=== PATIENT | female | born 1995 ===

== ENCOUNTER 2025-05-24 08:42 | Outpatient (REF) | payer OTHER, SELFPAY | END 2025-05-24 08:43 | disposition home or self-care (01) | LOC: CF 08:42 | PROVIDERS: PCP Nurse Practitioner Family; Visit Provider Nurse Practitioner Family | DX: Z00.00 Encounter for general adult medical examination without abnormal findings (principal); Z76.89 Persons encountering health services in other specified circumstances; Z39.1 Encounter for care and examination of lactating mother; E66.9 Obesity, unspecified; J45.20 Mild intermittent asthma, uncomplicated; D50.0 Iron deficiency anemia secondary to blood loss (chronic); F41.1 Generalized anxiety disorder; F33.0 Major depressive disorder, recurrent, mild; H91.22 Sudden idiopathic hearing loss, left ear; G08 Intracranial and intraspinal phlebitis and thrombophlebitis; Z87.898 Personal history of other specified conditions; Z79.899 Other long term (current) drug therapy; Z68.37 Body mass index [BMI] 37.0-37.9, adult | CPT/HCPCS: 96127; 96160 ==

== ENCOUNTER 2025-05-24 08:42 | Outpatient (AMB) | payer OTHER, SELFPAY ==
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
--- OUTSIDE RECORDS SUMMARY | 2024-04-01 10:30 | XMS_ITS ---
Author Organization [facility] [address] Address [address] [place] [address] Care Team Providers Care Hand Etcher Name Role Phone MATTSALTY BOSWELL Unavailable [phone] Medications Medication SIG (Take, Route, Fr equency, Duration) Notes Start Date End Date Status Zepbound 2.5 MG/0.5ML 2.5 mg weekly Subc utaneous Weekly; Duration: 30 days Active Encounters Encounter Location Date Provider Diagnosis [facility] [address] [address] 04/01/2024 SALTY KNUTSON BMI 37.0-37.9, adult Z68.37 [...] minimum of 6 months The most recent [place] [employer] of clinical endocrinologists and [place] [employer] of endocrinology guidelines recommend patients who [...] track activity level. Consider using apps like [employer], jslyhlpal, lose it, stick as needed for self-monitoring and weight management. Consider group exercises. Consider hiring a personal assistant. Regular exercise is ward to sustainable health [...] counseling and psychiatry and Dr Mitchell at [facility]. We would like to cover regular topics [...] software and direct typing Please excuse inadvertent manager order or typing errors, or uncorrected word substitutions Although every attempt has been made by the provider to proofread this document, occasional misspellings and typographical errors may still be present Due to the previous pandemic, and the use of personal protective equipment (PPE) This may decrease voice recognition accuracy Inadvertent manager order errors may occur 04/01/2024 Obesity (BMI 30-39.9) [...] minimum of 6 months The most recent [place] [employer] of clinical endocrinologists and [place] [employer] of endocrinology guidelines recommend patients who [...] track activity level. Consider using apps like [employer], [employer], lose it, stick as needed for self-monitoring and weight management. Consider group exercises. Consider hiring a personal assistant. Regular exercise is ward to sustainable health [...] counseling and psychiatry and Dr Mitchell at [facility]. We would like to cover regular topics [...] software and direct typing Please excuse inadvertent manager order or typing errors, or uncorrected word substitutions Although every attempt has been made by the provider to proofread this document, occasional misspellings and typographical errors may still be present Due to the previous pandemic, and the use of personal protective equipment (PPE) This may decrease voice recognition accuracy Inadvertent manager order errors may occur 04/01/2024 Dietary counseling and [...] minimum of 6 months The most recent [place] [employer] of clinical endocrinologists and [place] [employer] of endocrinology guidelines recommend patients who [...] track activity level. Consider using apps like [employer] mionute ex[employer]Arcos Technologiesise, jslyhlpal, lose it, stick as needed for self-monitoring and weight management. Consider group exercises. Consider hiring a personal assistant. Regular exercise is ward to sustainable health [...] counseling and psychiatry and Dr Mitchell at [facility]. We would like to cover regular topics [...] software and direct typing Please excuse inadvertent manager order or typing errors, or uncorrected word substitutions Although every attempt has been made by the provider to proofread this document, occasional misspellings and typographical errors may still be present Due to the previous pandemic, and the use of personal protective equipment (PPE) This may decrease voice recognition accuracy Inadvertent manager order errors may occur 04/01/2024 Anxiety (ICD-10 - [...] minimum of 6 months The most recent [place] [employer] of clinical endocrinologists and [place] [employer] of endocrinology guidelines recommend patients who [...] track activity level. Consider using apps like [employer], jslyhlpal, lose it, stick as needed for self-monitoring and weight management. Consider group exercises. Consider hiring a personal assistant. Regular exercise is ward to sustainable health [...] counseling and psychiatry and Dr Mitchell at [facility]. We would like to cover regular topics [...] software and direct typing Please excuse inadvertent manager order or typing errors, or uncorrected word substitutions Although every attempt has been made by the provider to proofread this document, occasional misspellings and typographical errors may still be present Due to the previous pandemic, and the use of personal protective equipment (PPE) This may decrease voice recognition accuracy Inadvertent manager order errors may occur 04/01/2024 Current mild episode [...] minimum of 6 months The most recent [place] [employer] of clinical endocrinologists and [place] [employer] of endocrinology guidelines recommend patients who [...] track activity level. Consider using apps like [employer], jslyhlpal, lose it, stick as needed for self-monitoring and weight management. Consider group exercises. Consider hiring a personal assistant. Regular exercise is ward to sustainable health [...] counseling and psychiatry and Dr Mitchell at [facility]. We would like to cover regular topics [...] software and direct typing Please excuse inadvertent manager order or typing errors, or uncorrected word substitutions Although every attempt has been made by the provider to proofread this document, occasional misspellings and typographical errors may still be present Due to the previous pandemic, and the use of personal protective equipment (PPE) This may decrease voice recognition accuracy Inadvertent manager order errors may occur 04/01/2024 Hyperlipidemia, unspecified hyperlipidemia [...] minimum of 6 months The most recent [place] [employer] of clinical endocrinologists and [place] [employer] of endocrinology guidelines recommend patients who [...] track activity level. Consider using apps like [employer], jslyhlpal, lose it, stick as needed for self-monitoring and weight management. Consider group exercises. Consider hiring a personal assistant. Regular exercise is ward to sustainable health [...] counseling and psychiatry and Dr Mitchell at [facility]. We would like to cover regular topics [...] software and direct typing Please excuse inadvertent manager order or typing errors, or uncorrected word substitutions Although every attempt has been made by the provider to proofread this document, occasional misspellings and typographical errors may still be present Due to the previous pandemic, and the use of personal protective equipment (PPE) This may decrease voice recognition accuracy Inadvertent manager order errors may occur 04/01/2024 Microcytosis (ICD-10 - [...] minimum of 6 months The most recent [place] [employer] of clinical endocrinologists and [place] [employer] of endocrinology guidelines recommend patients who [...] track activity level. Consider using apps like [employer], jslyhlpal, lose it, stick as needed for self-monitoring and weight management. Consider group exercises. Consider hiring a personal assistant. Regular exercise is ward to sustainable health [...] counseling and psychiatry and Dr Mitchell at [facility]. We would like to cover regular topics [...] software and direct typing Please excuse inadvertent manager order or typing errors, or uncorrected word substitutions Although every attempt has been made by the provider to proofread this document, occasional misspellings and typographical errors may still be present Due to the previous pandemic, and the use of personal protective equipment (PPE) This may decrease voice recognition accuracy Inadvertent manager order errors may occur Plan Of Treatment Medication Medication Name Sig Start Date Stop Date Notes Zepbound 2.5 MG/0.5ML 2.5 mg weekly Subc utaneous Weekly; Duration: 30 days Progress Notes * Joslyn MARTINEZaDOB: (30 yo F)Acc No.[id number]:04/01/2024 Patient: Madhuri SUN Provider: Skip KNUTSON NP :1995 A ge:29 Y S ex:Female Date:04/01/2024 Address:[address] [place] [address] Subjective: * Chief Complaints: * * HPI: C onstitutional: Patient is here [...] national shortages /Insurance prior authorization Started with personal assistant recently Last A1c 5.6 tolerating med well, [...] 18 TSH 0.87 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 * ROS: A ll Other Systems: Review of Systems (ROS) A ll others negative except those mentioned in HPI. * Medical History: Objective: * Vitals: * Examination: G eneral Examination: GENERAL APPEARANCE: i n no acute distress, well developed, well nourished. H EAD: n ormocephalic, atraumatic. E YES: p upils equal, round, reactive to light and accommodation. E ARS: n ormal. O RAL CAVITY: m ucosa moist. T HROAT: c lear. N BRENDA/THYROID: n brenda supple, full range of motion, no cervical lymphadenopathy. S KIN: n o suspicious lesions, warm and dry. H EART: n o murmurs, regular rate and rhythm, S1, S2 normal. L UNGS: c lear to auscultation bilaterally. A BDOMEN: n ormal, bowel sounds present, soft, nontender, nondistended. E XTREMITIES: n o clubbing, cyanosis, or edema. N EUROLOGIC: n onfocal, motor strength normal upper and lower extremities, sensory exam intact. Assessment: * Assessment: 1. O besity (BMI 30-39.9) - E66.9 (Primary) 2 . B IL 37.0-37.9, adult - Z68.37 3 . D [...] minimum of 6 months The most recent [place] [employer] of clinical endocrinologists and [place] [employer] of endocrinology guidelines recommend patients who [...] track activity level. Consider using apps like [employer], myfitPortAuthority Technologiespal, lose it, stick as needed for self-monitoring and weight management. Consider group exercises. Consider hiring a personal assistant. Regular exercise is ward to sustainable health [...] counseling and psychiatry and Dr Mitchell at [facility]. We would like to cover regular topics [...] software and direct typing Please excuse inadvertent manager order or typing errors, or uncorrected word substitutions Although every attempt has been made by the provider to proofread this document, occasional misspellings and typographical errors may still be present Due to the previous pandemic, and the use of personal protective equipment (PPE) This may decrease voice recognition accuracy Inadvertent manager order errors may occur. 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
--- OUTSIDE RECORDS SUMMARY | 2024-05-01 05:15 | XMS_ITS ---
Author Organization [facility] Address [address] [place] [address] Care Team Providers Care Press Helper Name Role Phone MATTSALTY BOSWELL Unavailable [phone] REASON FOR VISIT pt is here for wt mgmt follow up/pt unable to do seca due to computer malfunction Medications Medication SIG (Take, Route, Fr equency, Duration) Notes Start Date End Date Status Nurtec 75 MG 1 tablet as needed o n the tongue and allow to dissolve Orally every 48 hours; Duration: 90 days 04/07/2023 Active Wegovy 0.25mg 0.25mg 0.25 subcutaneously weekly; Duration: 30 days Active Zepbound 2.5 MG/0.5ML 2.5 mg weekly Subc utaneous Weekly; Duration: 30 days Active Encounters Encounter Location Date Provider Diagnosis [facility] [address] [place] [address] 05/01/2024 SALTY KNUTSON BMI 37.0-37.9, adult Z68.37 [...] minimum of [address] most recent [place] [employer] of clinical endocrinologists and [employer] [place] [employer] endocrin[employer] guidelines recommend patients who [...] track activity level. Consider using apps like [employer], myfitnesspal, lose it, stick as needed for self-monitoring and weight management. Consider group exercises. Consider hiring a personal care aide. Regular exercise is ward to sustainable health [...] counseling and psychiatry and Dr Mitchell at [facility]. We would like to cover regular topics [...] software and direct typing Please excuse inadvertent pipe fitter gas pipe or typing errors, or uncorrected word substitutions Although every attempt has been made by the provider to proofread this document, occasional misspellings and typographical errors may still be present Due to the previous pandemic, and the use of personal protective equipment (PPE) This may decrease voice recognition accuracy Inadvertent pipe fitter gas pipe errors may occur 05/01/2024 Obesity (BMI 30-39.9) [...] minimum of [address] The most recent [place] [employer] of clinical endocrinologists and [place] [employer] endocrin[employer] guidelines recommend patients who [...] track activity level. Consider using apps like [employer], myfitnesspal, lose it, stick as needed for self-monitoring and weight management. Consider group exercises. Consider hiring a personal care aide. Regular exercise is ward to sustainable health [...] counseling and psychiatry and Dr Mitchell at [facility]. We would like to cover regular topics [...] software and direct typing Please excuse inadvertent pipe fitter gas pipe or typing errors, or uncorrected word substitutions Although every attempt has been made by the provider to proofread this document, occasional misspellings and typographical errors may still be present Due to the previous pandemic, and the use of personal protective equipment (PPE) This may decrease voice recognition accuracy Inadvertent pipe fitter gas pipe errors may occur 05/01/2024 Dietary counseling and [...] minimum of [address] The most recent [place] [employer] of clinical endocrinologists and [employer] [place] [employer] of endocrinology guidelines recommend patients who [...] track activity level. Consider using apps like [employer], myfitnesspal, lose it, stick as needed for self-monitoring and weight management. Consider group exercises. Consider hiring a personal care aide. Regular exercise is ward to sustainable health [...] counseling and psychiatry and Dr Mitchell at [facility]. We would like to cover regular topics [...] software and direct typing Please excuse inadvertent pipe fitter gas pipe or typing errors, or uncorrected word substitutions Although every attempt has been made by the provider to proofread this document, occasional misspellings and typographical errors may still be present Due to the previous pandemic, and the use of personal protective equipment (PPE) This may decrease voice recognition accuracy Inadvertent pipe fitter gas pipe errors may occur 05/01/2024 Anxiety (ICD-10 - [...] minimum of [address] The most recent [place] [employer] of clinical endocrinologists and [place] [employer] of endocrinology guidelines recommend patients who [...] track activity level. Consider using apps like [employer], Xanof[employer], lose it, stick as needed for self-monitoring and weight management. Consider group exercises. Consider hiring a personal care aide. Regular exercise is ward to sustainable health [...] counseling and psychiatry and Dr Mitchell at [facility]. We would like to cover regular topics [...] software and direct typing Please excuse inadvertent pipe fitter gas pipe or typing errors, or uncorrected word substitutions Although every attempt has been made by the provider to proofread this document, occasional misspellings and typographical errors may still be present Due to the previous pandemic, and the use of personal protective equipment (PPE) This may decrease voice recognition accuracy Inadvertent pipe fitter gas pipe errors may occur 05/01/2024 Current mild episode [...] minimum of [address] most recent [place] [employer] of clinical endocrinologists and [employer] [place] [employer] of endocrinology guidelines recommend patients who [...] track activity level. Consider using apps like [employer], Xanofipal, lose it, stick as needed for self-monitoring and weight management. Consider group exercises. Consider hiring a personal care aide. Regular exercise is ward to sustainable health [...] counseling and psychiatry and Dr Mitchell at [facility]. We would like to cover regular topics [...] software and direct typing Please excuse inadvertent pipe fitter gas pipe or typing errors, or uncorrected word substitutions Although every attempt has been made by the provider to proofread this document, occasional misspellings and typographical errors may still be present Due to the previous pandemic, and the use of personal protective equipment (PPE) This may decrease voice recognition accuracy Inadvertent pipe fitter gas pipe errors may occur 05/01/2024 Hyperlipidemia, unspecified hyperlipidemia type (ICD-10 - E78.5) #Weight Management 05/01/2024 _update labs start Chuckpbound Will follow up in 6 weeks On [...] minimum of [address] most recent [place] [employer] of clinical endocrinologists and [employer] [place] [employer] of endocrinology guidelines recommend patients who [...] track activity level. Consider using apps like [employer], Xanofipal, lose it, stick as needed for self-monitoring and weight management. Consider group exercises. Consider hiring a personal care aide. Regular exercise is ward to sustainable health [...] counseling and psychiatry and Dr Mitchell at [facility]. We would like to cover regular topics [...] software and direct typing Please excuse inadvertent pipe fitter gas pipe or typing errors, or uncorrected word substitutions Although every attempt has been made by the provider to proofread this document, occasional misspellings and typographical errors may still be present Due to the previous pandemic, and the use of personal protective equipment (PPE) This may decrease voice recognition accuracy Inadvertent pipe fitter gas pipe errors may occur 05/01/2024 Microcytosis (ICD-10 - [...] minimum of [address] The most recent [place] [employer] of clinical endocrinologists and [employer] [place] [employer] of endocrinology guidelines recommend patients who [...] track activity level. Consider using apps like [employer], Xanofipal, lose it, stick as needed for self-monitoring and weight management. Consider group exercises. Consider hiring a personal care aide. Regular exercise is ward to sustainable health [...] counseling and psychiatry and Dr Mitchell at [facility]. We would like to cover regular topics [...] software and direct typing Please excuse inadvertent pipe fitter gas pipe or typing errors, or uncorrected word substitutions Although every attempt has been made by the provider to proofread this document, occasional misspellings and typographical errors may still be present Due to the previous pandemic, and the use of personal protective equipment (PPE) This may decrease voice recognition accuracy Inadvertent pipe fitter gas pipe errors may occur Plan Of Treatment Medication Medication Name Sig Start Date Stop Date Notes Zepbound 2.5 MG/0.5ML 2.5 mg weekly Subc utaneous Weekly; Duration: 30 days Progress Notes * Joslyn MARTINEZaDOB: (30 yo F)Acc No.[id number]:05/01/2024 Patient: Madhuri SUN Provider: Skip KNUTSON NP :1995 A ge:29 Y S ex:Female Date:05/01/2024 Address:[address] [place] [address] Subjective: * Chief Complaints: * 1 . Pt is here for wt mgmt follow up/pt unable to do seca due to computer malfunction. 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 * ROS: A ll Other Systems: Review of Systems (ROS) A ll others negative except those mentioned in HPI. * Medical History: * Medications: T aking Wegovy 0.25mg 0.25mg 0.25 subcutaneously weekly , Taking Nurtec 75 MG Tablet Disintegrating 1 tablet as needed on the tongue and allow to dissolve Orally every 48 hours , Taking Zepbound 2.5 MG/0.5ML Solution Auto-injector 2.5 mg weekly Subcutaneous Weekly Objective: * Vitals: * Examination: G eneral [...] 30-39.9) - E66.9 (Primary) 2 . B [place] 37.0-37.9, adult - Z68.37 3 . D [...] minimum of [address] most recent [place] [employer] of clinical endocrinologists and [place] [employer] of endocrinology guidelines recommend patients who [...] track activity level. Consider using apps like [employer], myfitnesspal, lose it, stick as needed for self-monitoring and weight management. Consider group exercises. Consider hiring a personal care aide. Regular exercise is ward to sustainable health [...] counseling and psychiatry and Dr Mitchell at [facility]. We would like to cover regular topics [...] software and direct typing Please excuse inadvertent pipe fitter gas pipe or typing errors, or uncorrected word substitutions Although every attempt has been made by the provider to proofread this document, occasional misspellings and typographical errors may still be present Due to the previous pandemic, and the use of personal protective equipment (PPE) This may decrease voice recognition accuracy Inadvertent pipe fitter gas pipe errors may occur. Plan: * Treatment: * Procedure Codes: 9 9199 NO SHOW OFFICE VISIT * Images: Billing Information: * Visit Code: * Procedure Codes: 15079 NO SHOW OFFICE VISIT. 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 Examination Category Sub-Category Detail Notes Category Not es General Examination GENERAL APPEARANCE: in no ac [place] distress, well developed, well nourished HEAD: normocephalic, [...]
--- NOTE | 2025-05-24 08:43 | A.OFFPC_ITS ---
Vital Signs 05/24/25 08:51 Height 5 ft 3 in Weight 211 lb 8 oz BMI 37.5 BP 118/70 Blood Pressure Location Lt brachial Position Sitting Respiration 12 Pulse 69 Pulse Source Pulse Oximeter Temp 97.3 F Temp Source Oral Pulse Oximetry (%) 98 Oxygen Delivery Method Room Air Intake Visit Reasons: CPE/ hearing issues Intake Note: New patient to establish care and cpe. 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 Required: No Allergies No Known Allergies Allergy (Verified 05/24/25 08:58) Medication List - Last Reviewed 05/24/25 by Blade Akers MA albuterol sulfate 90 mcg/actuation 1 puff inhalation Q4H PRN enoxaparin 40 mg subcut DAILY ferrous sulfate 325 mg PO DAILY sertraline 100 mg PO QAM Tobacco use date assessed: 05/24/25 Dental Screening Dental Screen Date: 05/24/25 Did you have a dental visit in the last 12 months?: Yes Did you have a dental problem in the last 6 months where you did not have access to dental care?: No Was dental information given to patient?: Patient has dentist HPI HPI Comments History of Present Illness Details 30 y/o F with asthma, gestational dm, ob esity, fhx colon ca in Mom, SCOTT, MDD, Iron def anemia, Cerebral venous thrombus of sinus Surgery: None Fhx: Mom colon Ca (dx 47); Dad alive and well; 3 siblings alive and well. 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 Hx of gestational dm SCOTT/MDD controlled on sertraline Mom colon ca dx age 47; sadie need colon at age 37. Rash on skin, comes and goes, takes Zyrtec with + effect. Started in February. Likely post reaction. Cerebral venous thrombus of sinus noted during last . + headaches. Advised no f/u needed L nipple chaffed and bleeding; pumping. Review of Systems - ENT: Reports difficulty hearing in lef t ear. - Mental Health: Reports controlled anxi ety and depression. - Respiratory: Reports well-controlled a sthma. - Dermatologic: Reports intermittent josefina h. - Gastrointestinal: Denies abdominal daniel n. - Neurological: Denies headaches. Physical Exam General: Well developed, well nourished, in no acute distress. Appears stated age. Head: Normocephalic, atraumatic. Eyes: Pupils are equal, round and reactive to light and accommodation. Conjunctivae are clear. Scleras nonicteric bilat. Vision grossly normal. Ears: TMs clear AU, EACS WNL. Nose: Patent, without discharge. Neck: No carotid bruit bilat. Supple, no adenopathy or thyromegaly. Breast: Left nipple is cracked, no infection. Edu on SBE. Lungs: Clear to auscultation bilaterally. No rales, rhonchi or wheeze noted. Good air flow in all gill. Heart: Regular rate and rhythm. No murmurs, click, rubs or gallops are noted. Abdomen: Bowel sounds present in all quadrants. The abdomen is soft, nontender, with no masses or organomegaly noted. No hernias are noted. : Deferred. Reviewed recommendations for routine HEALTH AND WELLNESS COORDINATOR. Pulses: Peripheral pulses are equal and palpable bilaterally. Extremities: No clubbing, cyanosis nor edema is noted. Neurologic: Gait and station normal. Cranial Nerves 2-12 intact. Motor strength grossly symmetrical and intact. No sensory loss. Balance normal. Skin: Rash noted, described as hives that appear all over the body, including face, neck, arms, and legs. Turgor is good. Skin color is good. Hair and nails are without abnormalities. Psych: Normal eye contact, affect and mood appropriate, and normal interactions. Patient is alert and appropriate to context. Results Pending Discussion Notes I discussed the significance of the patient's hearing loss and the need for further evaluation, including a hearing test and imaging. The patient is aware of the urgency for the ENT referral due to the progressive hearing loss. I explained the uncertainty around ENT wait times but mentioned imaging as a means to potentially expedite the process based on findings. Regarding the rash, I explained the potential for chronic hives or rash post-delivery due to hormonal changes, noting that if it persists beyond , dermatological evaluation may be needed. The patient was informed to continue Zyrtec for management. For the nipple concern, I recommended the application of zinc oxide as a barrier cream, acknowledging the potential benefits for healing. Patient was given time to ask questions. All questions were answered to their satisfaction. Assessment and Plan 1. Hearing Loss in the Left Ear - ENT referral. - CT scan 2. Iron Deficiency Anemia - Routine labs ordered. 3. Asthma - Refilled albuterol prescription. 4. Anxiety and Depression - Continue sertraline and psychotherapy. 5. Rash - Continue Zyrtec. - Dermatology referral if persistent. 6. Nipple Cracking/Pain - Apply zinc oxide. Patient Instructions - Use Zyrtec to control rash symptoms as needed. - Apply zinc oxide on affected nipple to aid healing. - Follow up on ENT referral for hearing evaluation. - Attend lab work as scheduled. - Continue taking prescribed medications as directed. - Contact office through [facility] for concerns or urgent needs. - RTO 1 year for CPE. My office will arr maritza for fu once CT results are back. Consent Patient was informed and verbally consented to the use of an ambient scribe for clinic note documentation during this visit. An additional 45 minutes was spent addressing the problem(s) noted at todays visit. This includes time spent before the visit reviewing the chart, time spent during the visit, and time spent after the visit on documentation reviewing laboratory results, diagnostic imaging, medications, performing a medically necessary evaluation, counseling on diagnoses, care coordination, ordering appropriate tests, ordering appropriate medications, review of tests performed by other providers, reporting test results with the patient, communication with other healthcare providers. [facility] Medical History (Updated 05/24/25 @ 12:47 by Carmelita Weems [facility]) Anxiety and depression Asthma HSV (herpes simplex virus) anogenital infection Surgical History (Updated 05/24/25 @ 08:54 by Blade Akers MA) No pertinent past surgical history Family History (Updated 05/24/25 @ 08:55 by Blade Akers MA) Mother Asthma Diabetes Colon cancer Mental health disorder Social History (Updated 05/24/25 @ 08:51 by Blade Akers MA) Household Members: Spouse, Children and Other Household Members Other:: mother in law Housing: House Are you a primary insurance healthcare consultant to a significant other at home: Yes Do you presently have visiting nurse or other home services: No Alcohol intake: never Patient Tobacco Use Status: Never used Tobacco e-Cigarette/Vaping Use: Never Used Second Hand Smoke Exposure: No service: No Current occupational status: employed 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 1. Little interest or pleasure in doing things: not at all 2. Feeling down, depressed, or hopeless: not at all 3. Trouble falling or staying asleep, or sleeping too much: not at all 4. Feeling tired or having little energy: not at all 5. Poor appetite or overeating: not at all 6. Feeling bad about yourself - or that you are a failure or have let yourself or your family down: not at all 7. Trouble concentrating on things, such as reading the newspaper or watching television: not at all 8. Moving or speaking so slowly that other people could have noticed. Or the opposite - being so fidgety or restless that you have been moving around a lot more than usual: not at all 9. Thoughts that you would be better off or of hurting yourself in some way: not at all Total score: 0 Depression Screening Interpretation: Negative Depression Screening Done: Yes 08458 - PHQ-9 Billing: Yes Source: Developed by Drs. Todd Quintanilla, Herlinda Wood, Dav Prajapati and colleagues, with an educational stacy from [employer]. Thrive Questionnaire Date Thrive assessed: 05/24/25 I am a: Patient What is your living situation today?: I have a steady place to live Within the past 12 months, did the food you bought not last and you didn't have the money to get more?: Never true Within the past 12 months, did you worry whether your food would run out before you got money to buy more?: Never true Do you have trouble paying for medicines?: No Do you have trouble getting transportation to medical appointments?: No Do you have trouble paying your heating and electricity bill?: No Do you have trouble taking care of your child, family member or friend?: No Do you have trouble with day-to-day activities such as bathing, preparing meals, shopping, managing finances, etc.?: No Are you currently unemployed and looking for a job?: No Are you interested in more education?: No Please select the resources that you would like help with: None Currently or been in a relationship where the following occur: No concerns reported THRIVE Score: 0 AUDIT C Alcohol Use Questionnaire (AUDIT-C) 1. How often do you have a drink containing alcohol?: Never 3. How often do you have six or more drinks on one occasion?: Never Total Score: 0 Score Reviewed/Action Taken: Yes SCOTT-7 AMB Questionnaire SCOTT-7 Date SCOTT - 7 assessed: 05/24/25 Feeling nervous, anxious, or on edge: 1 = Several days Not being able to stop or control worryin = Not at all Worrying too much about different things: 0 = Not at all Trouble relaxin = Several days Being so restless that it is hard to sit still: 0 = Not at all Becoming easily annoyed or irritable: 1 = Several days Feeling afraid as if something awful might happen: 0 = Not at all Total SCOTT-7 score (0-4 normal; 5-9 mild; 10-14 moderate; 15-21 severe): 3 Source: Developed by Drs. Todd Quintanilla, Herlinda Wood, Dav Prajapati and colleagues, with an educational stacy from [employer]. SCOTT-7 Assessment Billing SCOTT-7 Assessment Tool: SCOTT-7 Assessment 21236 ACT Questionnaire In the past 4 weeks, how much of the time did your asthma keep you from getting as much done at work, school or at home?: None of the time During the past 4 weeks, how often have you had shortness of breath?: Not at all During the past 4 weeks, how often did your asthma symptoms wake you up at night or earlier than usual in the morning?: Not at all During the past 4 weeks, how often have you had to use your rescue inhaler or nebulizer medication?: Not at all How would you rate your asthma control during the past 4 weeks?: Completely controlled ACT Interpretation: Negative Score: 25 Physical exam (Primary Care) Vital Signs: Last Vital Signs Temp 97.3 F 05/24/25 08:51 Pulse 69 05/24/25 08:51 Resp 12 05/24/25 08:51 BP 118/70 05/24/25 08:51 Pulse Ox 98 09/30/25 08:51 Oxygen Delivery Method Room Air 05/24/25 08:51 BMI result Body Mass Index 37.5 Tobacco/Smoking Status: Tobacco use Status Tobacco use date assessed 05/24/25 05/24/25 08:47 Patient Tobacco Use Status Never used Tobacco 05/24/25 08:51 e-Cigarette/Vaping Use Never Used 05/24/25 08:51 PHQ-9: PHQ-9 Score PHQ-9: Total score 0 05/24/25 09:28 Depression Screening Interpretation: Negative Thrive Assessment: Date of Thrive Assessment Date Thrive assessed 05/24/25 05/24/25 08:47 Currently or been in a relationship where the following occur: No concerns reported Coding Level of Care Code New Pt Level 4 (39351) New Pt Prev Care 18-39yr(74274 Diagnoses Encounter to establish care with new provider Z76.89 Obesity (BMI 30-39.9) E66.9 Mild intermittent asthma in adult without complication J45.20 Laboratory exam ordered as part of routine general medical examination Z00.00 Iron deficiency anemia due to chronic blood loss D50.0 Iron deficiency anemia type: chronic blood loss SCOTT (generalized anxiety disorder) F41.1 Mild episode of recurrent major depressive disorder F33.0 Major depression episode severity: mild Sudden-onset sensorineural hearing loss of left ear H91.22 Cerebral venous sinus thrombosis G08 History of headache Z87.898 Encounter for general adult medical examination without abnormal findings Z00.00 Mother currently breast-feeding Z39.1 Additional Codes Asthma Control Questionnaire - ACT Interpretation: Negative ([id number]) SCOTT-7 Assessment Billing - SCOTT-7 Assessment Tool: SCOTT-7 Assessment 05304 ([id number]) PHQ-9 - 72435 - PHQ-9 Billing: Yes ([id number]) Assessment & Plan Assessment & Plan (1) Encounter to establish care with new provider: Code(s): Z76.89 - Persons encountering health services in other specified circumstances (2) Obesity (BMI 30-39.9): Code(s): E66.9 - Obesity, unspecified Category: Medical (3) Mild intermittent asthma in adult without complication: Code(s): J45.20 - Mild intermittent asthma, uncomplicated Category: Medical (4) Laboratory exam ordered as part of routine general medical examination: Code(s): Z00.00 - Encounter for general adult medical examination without abnormal findings Category: Medical (5) Iron deficiency anemia: Code(s): D50.9 - Iron deficiency anemia, unspecified Category: Medical Qualifiers: Iron deficiency anemia type: chronic blood loss Qualified Code(s): D50.0 - Iron deficiency anemia secondary to blood loss (chronic) (6) SCOTT (generalized anxiety disorder): Code(s): F41.1 - Generalized anxiety disorder Category: Medical (7) MDD (major depressive disorder), recurrent episode: Code(s): F33.9 - Major depressive disorder, recurrent, unspecified Category: Medical Qualifiers: Major depression episode severity: mild Qualified Code(s): F33.0 - Major depressive disorder, recurrent, mild (8) Sudden-onset sensorineural hearing loss of left ear: Code(s): H91.22 - Sudden idiopathic hearing loss, left ear Category: Medical (9) Cerebral venous sinus thrombosis: Code(s): G08 - Intracranial and intraspinal phlebitis and thrombophlebitis Category: Medical (10) History of headache: Code(s): Z87.898 - Personal history of other specified conditions Category: Medical (11) Encounter for general adult medical examination without abnormal findings: Onset Date: ~05/24/25 Code(s): Z00.00 - Encounter for general adult medical examination without abnormal findings Category: Medical (12) Mother currently breast-feeding: Code(s): Z39.1 - Encounter for care and examination of lactating mother Category: Medical Plan . Orders: Orders Comprehensive Met. Panel Today D50.9 - Iron deficiency anemia, unspecified, F33.9 - Major depressive disorder, recurrent, unspecified, F41.1 - Generalized anxiety disorder, Z00.00 - Encounter for general adult medical examination without abnormal findings Hemoglobin A1c Today D50.9 - Iron deficiency anemia, unspecified, F33.9 - Major depressive disorder, recurrent, unspecified, F41.1 - Generalized anxiety disorder, Z00.00 - Encounter for general adult medical examination without abnormal findings Ferritin Today D50.9 - Iron deficiency anemia, unspecified, F33.9 - Major depressive disorder, recurrent, unspecified, F41.1 - Generalized anxiety disorder, Z00.00 - Encounter for general adult medical examination without abnormal findings Microalbumin, Random (w Creat) Today D50.9 - Iron deficiency anemia, unspecified, F33.9 - Major depressive disorder, recurrent, unspecified, F41.1 - Generalized anxiety disorder, Z00.00 - Encounter for general adult medical examination without abnormal findings Vitamin B12 and Folate Today D50.9 - Iron deficiency anemia, unspecified, F33.9 - Major depressive disorder, recurrent, unspecified, F41.1 - Generalized anxiety disorder, Z00.00 - Encounter for general adult medical examination without abnormal findings CT internal auditory canals BI Today G08 - Intracranial and intraspinal phlebitis and thrombophlebitis, H91.22 - Sudden idiopathic hearing loss, left ear Complete Blood Count no Diff Today D50.9 - Iron deficiency anemia, unspecified, F33.9 - Major depressive disorder, recurrent, unspecified, F41.1 - Generalized anxiety disorder, Z00.00 - Encounter for general adult medical examination without abnormal findings IRON PROFILE Today D50.9 - Iron deficiency anemia, unspecified, F33.9 - Major depressive disorder, recurrent, unspecified, F41.1 - Generalized anxiety disorder, Z00.00 - Encounter for general adult medical examination without a bnormal findings Lipid Panel Today D50.9 - Iron deficiency anemia, unspecified, F33.9 - Major depressive disorder, recurrent, unspecified, F41.1 - Generalized anxiety disord er, Z00.00 - Encounter for general adult medical examination without abnormal findings TSH reflex Free T4 Today D50.9 - Iron deficiency anemia, unspecified, F33.9 - Major depressive disorder, recurrent, unspecified, F41.1 - Generalized anxiety disorder, Z00.00 - Encounter for general adult medical examination without abnormal findings Vitamin D 25-OH Total Today D50.9 - Iron deficiency anemia, unspecified, F33.9 - Major depressive disorder, recurrent, unspecified, F41.1 - Generalized anxiety disorder, Z00.00 - Encounter for general adult medical examination without abnormal findings Referrals Ear/Nose/Throat Referral G08 - Intracranial and intraspinal phlebitis and thrombophlebitis, H91.22 - Sudden idiopathic hearing loss, left ear Medications: New albuterol sulfate 90 mcg/actuation 1 puff inhalation Q4H PRN 6.7 grams 2RF wheezing Patient Instructions: Zinc Oxide (desitin) Walk-In Care (Urgent Care): We Make it Easy Walk-in for urgent medical issues such as: ? Seasonal Allergies ? Insect Bites ? Cough ? Diarrhea ? Acute Asthma Attacks ? Back, Knee or Joint Pain ? Ear Infection ? Fever without a Rash ? Headaches ? Nausea ? [place] Eye, Rash or Skin Irritation ? Sore Throat ? Sports Physicals ? Vomiting Most insurances are accepted. Patients do not need to be part of the [facility] to seek care at the walk-in clinic. Locations [address] [place] [address] Open Friday through Friday 8am-5pm *Hours may vary due to staffing availability. To confirm Walk-In Care hours please call. [facility] , [place] [address] ? [phone] [facility] Walk-In Care in [place] provides services to ages 18 and over. Open Friday-Friday: 7 a.m. to 5 p.m. and Friday: 9 a.m. to 3 p.m.* *Hours may vary due to staffing availability. To confirm Walk-In Care hours in [place], please call [phone]. [address] [place] [address] ? [phone] [facility] Walk-In Care in [place] provides services to ages 12 and over. Open Friday-Friday: 8 a.m. to 5 p.m. Hours may vary due to staffing availability. To confirm Walk-In Care hours in [place], please call [phone]. LABORATORY SERVICES: [facility] Lab ? Primary Location [address] [place] [address] Friday through Friday 6:00 AM ? 5:00 PM Friday 7:00 AM ? 11:00 AM* [phone] The [facility] Lab is centrally located near the front entrance of the [facility] for easy outpatient access. Convenient parking is provided for outpatients. *Hours may vary due to staffing availability. To confirm Laboratory hours for any location, please call [phone]. Offsite Location For your convenience, we offer offsite laboratory draw stations at the following locations: [address] [place] [address] ? [facility] [address], [address] Friday through Friday 7:30 AM ? 1:00 PM* [phone] *Hours may vary due to staffing availability. To confirm Laboratory hours for any location, please call [phone]. [place] [address] Friday through Friday 6:00 AM ? 3:30 PM* Friday 6:30 AM ? 3 PM* [phone] *Hours may vary due to staffing availability. To confirm Laboratory hours for any location, please call [phone]. [address] [facility] Friday through Friday 7:30 AM ? 4:00 PM* [phone] *Hours may vary due to staffing availability. To confirm Laboratory hours for any location, please call [phone] [place] [address] Friday through 9:00 AM ? 4:00 PM* *Hours may vary due to staffing availability. To confirm Laboratory hours for any location, please call [phone]. Appointments are not necessary. Walk-ins are welcome. Like all the departments throughout the [facility], our Lab undergoes frequent reviews to ensure the quality and accuracy of test results, and our staff takes special pride in its status as a nationally accredited facility. Patient Portal: [facility] ONE PATIENT. ONE RECORD. BETTER CARE. [facility] has a fully integrated, cutting- edge mobile electronic health information system that has revolutionized the way we care for our patients and manage our organization. This system improves communication and coordination enabling us to provide safe, higher-quality care, and an overall positive experience for staff and patients. Our first priority, as always, is to deliver the highest quality care possible. The system is running in the background supporting that priority. This portal is for all [facility] services and practices. If you are experiencing any technical difficulties with enrolling or logging into the Patient Portal please complete the [facility] Patient Portal Technical Support Form. [facility] now offers a new secure on-line interactive tool for patients to review their health information ? ?Patient Portal. This interactive web portal will enable patients and their families to take an active role in their care by providing easy, secure access to their health information via the internet. The Patient Portal provides patients with instant access to their health information, including laboratory results, medications, allergies, demographic information, visit history, and more. In addition to managing their own care, parents and health care proxies with authorized consent will appreciate the ability to access the records of those individuals for whom they provide care. Please note: if you wish to gain access (Proxy) to another patient?s portal, you will be required to come to the Medical Records Department in person at [facility]. Both the patient giving proxy access and the proxy will need to provide photo identification and complete the appropriate authorization. The Patient Portal also allows track their appointments online. The [facility] Patient Portal also saves patients time by allowing them to submit updates to their demographic and contact information prior to their visits. Portal email notifications will also alert patients to any new activity on their portal, such as test results and new appointments. In order to initially enroll in the [facility] Patient Portal, you will need to enter some required information including the following: * your [facility] Medical Record number * your personal home email address * name * date of Please note: In order to enroll in the [facility] Patient Portal, we need to have your email address on file in your electronic medical record. ?The email address needs to be specific for one person (yourself) in order for your Portal enrollment to be successful. ?You can update your email address in person with our Registration staff when you are registering for a hospital visit. ?Otherwise, you will need to come to the Health Information Management (Medical Records) Department at [facility]. ?We are open from Friday ? Friday from 7:30 a.m. ? 4:30 p.m. ?You will be required to present a photo id. Once you have successfully enrolled in the Patient Portal, you will receive a one-time user id and password for the Portal, sent to your email address. ?This will allow you to log into the Patient Portal within 99 hrs and reset your own logon id and password, and define personal security questions. ?Once your permanent login and password have been set, you can log into the [facility] Patient Portal at any time via the blue button above or from the Portal Logon button on any page of the [facility] website. [facility] and [facility] encourage all of our patients to enroll in Patient Portal as it presents a valuable opportunity for patients and their families to actively participate in their care and stay healthy Welcome to [facility]. ?We look forward to working with you. Health screenings for women You should visit your health care provider from time to time, even if you are healthy. The purpose of these visits is to: Screen for medical issues Assess your risk for future medical problems Encourage a healthy lifestyle Update vaccinations and other preventive care services Help you get to know your provider in case of an illness Information Even if you feel fine, you should still see your provider for regular checkups. These visits can help you avoid problems in the future. For example, the only way to find out if you have high blood pressure is to have it checked regularly. High blood sugar and high cholesterol levels also may not have any symptoms in the early stages. A simple blood test can check for these conditions. There are specific times when you should see your provider or receive specific health screenings. The [place] Preventive Services Task Force publishes a list of recommended screenings. Below are screening guidelines for women ages 18 to 39. BLOOD PRESSURE SCREENING Your blood pressure should be checked at least once every 3 to 5 years if: Your blood pressure is in the normal range (top number less than 120 mm Hg and bottom number less than 80 mm Hg) You don't have risk factors for high blood pressure Ask your provider if you need your blood pressure checked more often if: The top number is 120 to 129 mm Hg or the bottom number is 70 to 79 mm Hg You have diabetes, heart disease, kidney problems, are overweight, or have certain other health conditions You have a first-degree relative with high blood pressure You are Black You had high blood pressure during a If the top number is 130 mm Hg or greater or the bottom number is 80 mm Hg or greater, this is considered stage 1 hypertension. Schedule an appointment with your provider to learn how you can reduce your blood pressure. Watch for blood pressure screenings in your area. Ask your provider if you can stop in to have your blood pressure checked. BREAST CANCER SCREENING Experts do not agree about the benefits of breast self-exams in finding breast cancer or saving lives. Talk to your provider about what is best for you. A screening mammogram is not recommended for most women under age 40. Your provider may discuss and recommend mammograms, MRI scans, or ultrasounds if you have an increased risk for breast cancer, such as: A mother or sister who had breast cancer at a young age (most often starting screening earlier than the age the close relative was diagnosed) You carry a high-risk genetic marker CERVICAL CANCER SCREENING Cervical cancer screening should start at age 21 years unless your provider advises otherwise. After the first test: Women ages 21 through 29 should have a Pap test every 3 years. Exoprts do not agree on whether HPV testing is recommended for this age group. Women ages 30 through 65 should be screened with either a Pap test every 3 years or the HPV test every 5 years or both tests every 5 years (called cotesting ). Women who have been treated for precancer (cervical dysplasia) should continue to have Pap tests for 20 years after treatment or until age 65, whichever is longer. If you have had your uterus and cervix removed (total hysterectomy), and you have not been diagnosed with cervical cancer or precancer (high grade cervical neoplasia), you do not need cervical cancer screening. CHOLESTEROL SCREENING Cholesterol screening should begin at: Age 45 for women with no known risk factors for coronary heart disease Age 20 for women with known risk factors for coronary heart disease Repeat cholesterol screening should take place: Every 5 years for women with normal cholesterol levels More often if changes occur in lifestyle (including weight gain and diet) More often if you have diabetes, heart disease, kidney problems, or certain other conditions DIABETES SCREENING You should be screened for diabetes starting at age 35 and then repeated every 3 years if you have no risk factors for diabetes. Screening may need to start earlier and be repeated more often if you have other risk factors for diabetes, such as: You have a first degree relative with diabetes. You are overweight or have obesity. You have high blood pressure, prediabetes, or a history of heart disease. Screening for diabetes should be done if you are planning to become and you are overweight and have other risk factors such as high blood pressure. DENTAL EXAM Go to the dentist once or twice every year for an exam and cleaning. Your dentist will evaluate if you need more frequent visits. EYE EXAM Have an eye exam every 5 to 10 years before age 40. If you have vision problems, have an eye exam every 2 years or more often if recommended by your provider. You should have an eye exam that includes an examination of your retina (back of your eye) at least every year if you have diabetes. IMMUNIZATIONS Commonly needed vaccines include: Flu shot: get one every year. COVID-19 vaccine: ask your provider what is best for you. Tetanus-diphtheria and acellular pertussis (Tdap) vaccine: have one at or after age 19 as one of your tetanus-diphtheria vaccines if you did not receive it as an adolescent. Tetanus-diphtheria: have a booster (or Tdap) every 10 years. Varicella vaccine: receive 2 doses if you never had chickenpox or the varicella vaccine. Hepatitis B vaccine: receive 2, 3, or 4 doses, depending on your exact circumstances. Measles, mumps, and rubella (MMR) vaccine: receive 1 to 2 doses if you are not already immune to MMR. Your provider can tell you if you are immune. Ask your provider about the human papillomavirus (HPV) vaccine if: You have not received the HPV vaccine in the past You have not completed the full vaccine series (you should catch up on this shot) Ask your provider if you should receive other immunizations if you have certain health problems that increase your risk for some diseases such as pneumonia. INFECTIOUS DISEASE SCREENING Women who are sexually active should be screened for chlamydia and gonorrhea up until age 25. Women 25 years and older should be screened for chlamydia and gonorrhea if at high risk. Screening for hepatitis C: All adults ages 18 to 79 should get a one-time test for hepatitis C. people should be screened at every . Screening for human immunodeficiency virus (HIV): All people ages 15 to 65 should get a one-time test for HIV. Depending on your lifestyle and medical history, you may also need to be screened for infections such as syphilis and HIV, as well as other infections. PHYSICAL EXAM All adults should visit their provider from time to time, even if they are healthy. The purpose of these visits is to: Screen for disease Assess your risk of future medical problems Encourage a healthy lifestyle Update your vaccinations and other preventive care services Maintain a relationship with a provider in case of an illness Your height, weight, and BMI should be checked at every exam. During your exam, your provider may ask you about: Depression and anxiety Diet and exercise Alcohol and tobacco use Safety issues, such as using seat belts, smoke detectors, and intimate partner violence Your medicines and risk for interactions SKIN SELF-EXAM Your provider may check your skin for signs of skin cancer, especially if you're at high risk, such as if you: Have had skin cancer before Have close relatives with skin cancer Have a weakened immune system OTHER SCREENING Talk with your provider about colon cancer screening if you have a strong family history of colon cancer or polyps, or if you have had inflammatory bowel disease or polyps yourself. Routine bone density screening of women under 40 is not recommended.
[2025-05-24 08:51] VITALS: BP 118/70; PULSE 69; RESP 12; TEMP 36.3; O2SAT 98; BMI 37.5
--- OUTSIDE RECORDS SUMMARY | 2025-05-24 09:11 | XMS_ITS | Patient Health Record ---
Author Organization [facility] [address] Address [address] [place] [address] Care Team Providers Care Medication Technician Name Role Phone SALTY KNUTSON Unavailable [phone] Allergies No Known Allergies Reason For Referral No Information Medications Medication SIG (Take, Route, Fr equency, Duration) Notes Start Date End Date Status Nurtec 75 MG 1 tablet as needed o n the tongue and allow to dissolve Orally every 48 hours; Duration: 90 days 04/07/2023 Active Wegovy 0.25mg 0.25mg 0.25 subcutaneously weekly; Duration: 30 days Active Zepbound 2.5 MG/0.5ML 2.5 mg weekly Subc utaneous Weekly; Duration: 30 days Active Immunizations Vaccine Route Administration Date Status Comme nts influenza IM Intramuscular 10/08/2022 Administered Social History Tobacco Use: Social History Observation Description Date Details (start date - stop date) Never Smoker NA - NA Tobacco Use/Smoking Question Answer Notes Are you a nonsmoker Problems Problem Type SNOMED Code ICD Code Onset Dates Problem Status W/U Status Risk Notes Problem Vitamin D deficiency (89270970) Vitamin D deficiency, unspecified (E55.9) Active confirmed Problem Migraine with aura (9401423) Migraine with aura, not intractable, with status migrainosus (G43.101) Active confirmed Problem Adult health examination (011293763) Encounter for general adult medical examination without abnormal findings (Z00.00) Active confirmed Problem Diabetes mellitus screening (435268105) Encounter for screening for diabetes mellitus (Z13.1) Active confirmed Problem Endocrine/metaboli c screening (444297377) Encounter for screening for other suspected endocrine disorder (Z13.29) Active confirmed Problem Prediabetes (073354024) Prediabetes (R73.03) Active confirmed Problem Hyperlipidaemia (08279532) Hyperlipidemia, unspecified hyperlipidemia type (E78.5) Active confirmed Problem Anxiety (31423420) Anxiety (F41.9) Active confi rmed Problem Hypothyroidism (32458618) Hypothyroidism, unspecified type (E03.9) Active confirmed Problem Obesity (637443080) Obesity (BMI 30-39.9) (E66.9) Active confirmed Problem Obese class II (487067623503935) BMI 37.0-37.9, adult (Z68.37) Active confirmed Problem Mild major depression, single episode (40510781) Current mild episode of major depressive disorder without prior episode (F32.0) Active confirmed Problem Obese class II (645865008931611) BMI 36.0-36.9,adult (Z68.36) Active confirmed Problem Visual Disturbance (98615804) Blurred vision, bilateral (H53.8) Active confirmed Problem ADD - Attention deficit disorder without hyperactivity (52096824) ADD (attention deficit disorder) without hyperactivity (F98.8) Active confirmed Problem Tension headache (500768735) Tension headache (G44.209) Active confirmed Plan Of Treatment Pending Test Test Name Order Date MRI : Brain with and without contrast MRI : Brain and Sinuses 03/10/2023 MRI : Brain without Contrast 03/06/2023 25OH VITAMIN D 09/20/2022 CBC (COMPLETE BLOOD COUNT) 09/20/2022 COMPREHENSIVE METABOLIC PANEL 09/20/2022 HEMOGLOBIN A1C 09/20/2022 LIPID PANEL 09/20/2022 TSH 09/20/2022 MRI Brain w Contrast 03/03/2023 LIPID PANEL, STANDARD 01/28/2024 COMPREHENSIVE METABOLIC PANEL 01/28/2024 CBC (INCLUDES DIFF/PLT) 01/28/2024 URINALYSIS, COMPLETE 01/28/2024 HEMOGLOBIN A1c 01/28/2024 TSH 01/28/2024 VITAMIN D,25-OH,TOTAL,IA 01/28/2024 COMPLETE URINALYSIS 09/20/2022 Insurance Providers Payer Name Payer Address Payer Phone Subscriber Number Group Number Insured Name Patient Relationship to Insured Coverage Start Date Coverage End Date Edilma JORDAN [address] [place]y, [place] [address] [id number] Madhuri Martinez Self - patient is the insured 2 Medical (General) History Medical History History ICD Code anxiety depression asthma headache anemia weight gain Hospitalization History Reason Date(Month/Year) child 2021
--- OUTSIDE RECORDS SUMMARY | 2025-05-24 09:12 | XMS_ITS | Patient Health Record ---
Author Organization [employer] [facility] Address [address] [place] [address] Care Team Providers Care Air Director Name Role Phone LONI Cunningham, [facility] Primary Care Prov ider Unavailable CADEN ADAME Unavailable [phone] Allergies No Known Allergies Results Component Value Reference Range Notes Test, Urine Reviewed date:08/10/2024 04:47:44 PM Interpretation: Performing Lab: Notes/Report: Test, Urine POS Reason For Referral No Information Medications Medication SIG (Take, Route, Frequency, Duration) Notes Start Date End Date Status Valtrex 500 MG 1 tablet Orally twice a day at earliest sign out outbreak; Duration: 3 days 03/06/2020 Not-Taking Etonogestrel-Ethinyl Estradiol 0.12-0.015 MG/24HR _insert RING VAGINALLY, LEAVE IN PLACE FOR 3 WEEKS, REMOVE, AND REPLACE WITH A NEW RING AFTER 7 DAY BREAK PATIENT NEEDS TO SCHEDULE ANNUAL EXAM FOR FUTURE REFILLS. Not-Taking valACYclovir HCl 1 GM 1 tablet Orally Q 12 hours prn; Duration: 3 days 03/02/2020 Not-Taking Clotrimazole-Betamet hasone 1-0.05 % 1 application Externally Twice a day; Duration: 10 days 10/30/2023 Not-Taking Sertraline HCl 100 MG 1 tablet Orally Once a day; Duration: 30 day(s) Not-Taking Ibuprofen 600 MG 1 tablet with food or milk as needed Orally three times a day during menses; Duration: 3 days 02/21/2021 Not-Taking Active Iron 325 (65 Fe) MG 1 tablet Orally Once a day; Duration: 30 day(s) q other day Not-Taking Immunizations Vaccine Route Administration Date Status Comme nts GARDASIL 9 IM Intramuscular 11/08/2016 Administered GARDASIL 9 IM Intramuscular 01/17/2017 Administered GARDASIL 9 IM Intramuscular 11/14/2017 Administered Social History Alcohol Screen (Audit-C) Question Answer [...] Problem Status W/U Status Risk Notes Problem Dysmenorrhea (351802653) Dysmenorrhea, unspecified (N94.6) Active confirmed Problem Herpetic vulvovaginitis (80404260) Herpesviral vulvovaginitis (A60.04) Active confirmed Problem Gastro-esophageal reflux disease with esophagitis (002586332) Gastro-esophageal reflux disease with esophagitis (K21.0) Active confirmed Problem Amenorrhea (24360541) Amenorrhea, unspecified (N91.2) Active confirmed Problem Irregular Menstruation (01019346) Other specified irregular menstruation (N92.5) Active confirmed Problem Obese class II (369695812726085) Body mass index [BMI] 35.0-35.9, adult (Z68.35) Active confirmed Vital Signs Temperature 99.8 degrees Fahrenheit 08/10/2024 Blood pressure diastolic 72 mm Hg 08/10/2024 Height 63 in 08/10/2024 Blood pressure systolic 124 mm Hg 08/10/2024 Weight 230 lbs 08/10/2024 BMI 40.74 kg/m2 08/10/2024 Encounters Encounter Location Date Provider Diagnosis [address] [place] [address] 08/10/2024 CADEN ADAME Amenorrhea, unspecified N91.2 and Encounter for test, result positive Z32.01 Assessments Encounter Date Diagnosis (ICD Code) Assessment Notes Treatment Notes Treatment Clinical Notes Section Notes 08/10/2024 Amenorrhea, unspecified (ICD-10 - N91.2) Discussed Do's and Don't's of early , including importance of eating the rainbow, organic if possible, staying hydrated, getting enough rest. Encouraged to exercise and take vitamins. Encouraged to avoid alcohol, tobacco, unnecessary medications. Discussed dietary restrictions. She will call once she has scheduled her first visit, so we can forward our notes to that office. 08/10/2024 Encounter for test, result positive (ICD-10 - Z32.01) 08/10/2024 Other 34 minutes were spent on the day of the visit reviewing and prepping the chart, obtaining the HPI, examining the patient, counseling the patient on the diagnosis, ordering/refilli ng medications, ordering tests and procedures and documenting this encounter. Plan Of Treatment Pending Test Test Name Order Date Test, Urine 03/02/2020 Test, Urine 08/16/2020 Test, Urine 06/27/2021 Ultrasound : (OB) Transavaginal 08/16/20 ANTI-HEPATITIS C 11/14/2017 ANTI-HEPATITIS C 06/24/2022 CHLAMYDIA GC AMP PROBE 02/21/2021 HEP. B SURF. AG 06/24/2022 HEP. B SURF. AG 11/14/2017 THIN PREP,HPV IF ASCUS, CT/GC (21-29YR) 06/24/2022 TYPE AND SCREEN 07/03/2021 SYPHILIS TESTING 06/24/2022 SYPHILIS TESTING 11/14/2017 SYPHILIS TESTING 11/08/2016 HIV AB-AG 4TH GENERATION 11/08/2016 HIV AB-AG 4TH GENERATION 11/14/2017 HIV AB-AG 4TH GENERATION 06/24/2022 ENDO/VAG ULTRASOUND OB 07/05/2021 Insurance Providers Payer Name Payer Address Payer Phone Subscriber Number Group Number Insured Name Patient Relationship to Insured Coverage Start Date Coverage End Date [employer] [facility] [facility] [employer] ([employer]) [address] [place] [phone] [id number] STEFANI ANAND Self - patient is the insured Medical (General) History Medical History History ICD Code Gastro-esophageal reflux disease with es ophagitis K21.0 Irregular menstruation, unspecified N92. 6 COVID-19 U07.1 Surgical History Surgery Date(Month/Year) Hospitalization History Reason Date(Month/Year) childbirth
--- OUTSIDE RECORDS SUMMARY | 2025-05-24 09:12 | XMS_ITS ---
Author Name [facility] Organization Unknown Care Team Organization Name Specialty Phone Email Start Date End Da katherin [facility] Shannan [facility] 01/31/20232023
== END 2025-05-24 09:24 | disposition home or self-care (01) ==
PROVIDERS: PCP Nurse Practitioner Family; Visit Provider Nurse Practitioner Family
DX: Z00.00 Encounter for general adult medical examination without abnormal findings (principal); H91.22 Sudden idiopathic hearing loss, left ear; E66.9 Obesity, unspecified; Z68.37 Body mass index [BMI] 37.0-37.9, adult; J45.20 Mild intermittent asthma, uncomplicated; D50.0 Iron deficiency anemia secondary to blood loss (chronic); F41.1 Generalized anxiety disorder; F33.0 Major depressive disorder, recurrent, mild; G08 Intracranial and intraspinal phlebitis and thrombophlebitis; Z87.898 Personal history of other specified conditions; Z39.1 Encounter for care and examination of lactating mother

== ENCOUNTER 2025-05-24 10:10 | Outpatient (REF) | payer OTHER, SELFPAY ==
[2025-05-24 14:30] LABS: Hematocrit 38.9 % (37.0-47.0); Hemoglobin 12.1 g/dl (12.0-16.0); Mean Corpuscular HGB Conc 31.1 g/dl (31.0-35.0); Mean Corpuscular Hemoglobin 23.1 pg (27.0-33.0); Mean Corpuscular Volume 74.4 fL (80.0-98.0); NRBC Abs Auto 0.000 X10*3/uL (0.0-0.012); NRBC Pct Auto 0.0 /100WBC (0.0-0.2); Platelet Count 353 X10*3/uL (160-400); Red Blood Count 5.23 X10*6/uL (4.20-5.50); White Blood Count 9.3 X10*3/uL (4.8-10.8)
[2025-05-24 16:05] LABS: Folate > 20.0 ng/mL (> or = 4.0); Vitamin B12 687 pg/mL (200-900)
[2025-05-24 16:33] LABS: Alanine Aminotransferase 22 U/L (0-31); Albumin Level 4.5 g/dL (3.5-5.0); Alkaline Phosphatase 61 U/L (39-117); Anion Gap 12 (12-20); Aspartate Amino Transferase 14 U/L (5-31); Blood Urea Nitrogen 9 mg/dL (9-16); Calcium 9.3 mg/dL (8.4-10.2); Carbon Dioxide 25 mmol/L (22-29); Chloride 109 mmol/L (96-108); Cholesterol 194 mg/dL (<200); Estimated Glomerular Filt Rate > 60; HDL Cholesterol 51 mg/dL (>40); Iron 213 mcg/dL (30-160); Percent Iron Saturation 65 % (15-50); Potassium 4.4 mmol/L (3.3-5.1); Sodium 142 mmol/L (135-145); Total Iron Binding Capacity 329 mcg/dL (228-428); Total Protein 7.0 g/dL (6.5-8.0); Triglycerides 127 mg/dL (<150); Unsaturated Iron Binding 116 ug/dL
[2025-05-24 16:40] LABS: Ferritin 38 ng/mL (10-122)
== END 2025-05-24 10:11 | disposition home or self-care (01) ==
LOC: HO.WFDLDS 10:10
PROVIDERS: Visit Provider Nurse Practitioner Family
DX: Z00.00 Encounter for general adult medical examination without abnormal findings (principal); F33.9 Major depressive disorder, recurrent, unspecified; D50.9 Iron deficiency anemia, unspecified; F41.1 Generalized anxiety disorder
CPT/HCPCS: 36415; 80053; 80061; 82043; 82306; 82570; 82607; 82728; 82746; 83036; 83540; 84443; 85027

== ENCOUNTER 2025-08-08 08:07 | Outpatient (REF) | payer BC, SELFPAY | END 2025-08-08 08:08 | disposition home or self-care (01) | LOC: HO.WFDLDS 08:07 | PROVIDERS: PCP Nurse Practitioner Family; Visit Provider Nurse Practitioner Family | DX: F41.1 Generalized anxiety disorder (principal); E66.9 Obesity, unspecified; G43.909 Migraine, unspecified, not intractable, without status migrainosus; F33.0 Major depressive disorder, recurrent, mild; H91.22 Sudden idiopathic hearing loss, left ear; D50.0 Iron deficiency anemia secondary to blood loss (chronic); G08 Intracranial and intraspinal phlebitis and thrombophlebitis; Z68.39 Body mass index [BMI] 39.0-39.9, adult | CPT/HCPCS: 36415; 84443; 86376; 96127 ==

== ENCOUNTER 2025-08-08 08:07 | Outpatient (AMB) | payer BC, SELFPAY ==
--- OUTSIDE RECORDS SUMMARY | 2024-04-01 09:30 | XMS_ITS ---
Author Organization [facility] [address] Address [address] [place] [address] Care Team Providers Care Founder / Ceo Name Role Phone MATTSALTY BOSWELL Unavailable [phone] Medications Medication SIG (Take, Route, Frequency, Duration) Notes Start Date End Date Status Zepbound 2.5 MG/0.5ML Solution Auto-injector 2.5 mg weekly Subcutaneous Weekly; Duration: 30 days Active Encounters Encounter Location Date Provider Diagnosis [facility] [address] [address] 04/01/2024 SALTY KNUTSON BMI 37.0-37.9, adult Z68.37 ; Obesity (BMI 30-39.9) E66.9 ; Dietary counseling and surveillance Z71.3 ; Anxiety F41.9 ; Current mild episode of major depressive disorder without prior episode F32.0 ; Hyperlipidemia, unspecified hyperlipidemia type E78.5 and Microcytosis R71.8 Assessments Encounter Date Diagnosis (ICD Code) Assessment Notes Treatment Notes Treatment Clinical Notes Section Notes 04/01/2024 BMI 37.0-37.9, adult (ICD-10 - Z68.37) #Weight Management 04/01/2024 Patient seen today for weight management: _update labs start Zepbound Will follow up in 6 weeks On iron supplementation with improvement MCV Patient has been found to be obese with a BMI of (37). Patient has class (2) obesity. We have discussed the mechanism of GLP-1's/GIP I think this would be fantastic option for her given her metabolic workup and body composition We have discussed the risks and benefits and side effects There is no history of medullary thyroid cancer or multiple endocrine neoplasia -HLD-Recommended taking fish oil suppplements concomitantly. -Obesity- Recommended lifestyle medications - healthy diet, increasing fiber, cutting out alcohol/sugar and exercising to decrease trig levels. Discussed weight loss strategies and weight loss strategies/GLP-1, including phentermine. -Vit D deficiency- will begin taking Vit D. -iorn deficiency anemia- start ferrous sulfate supplementation -migraines 2-3xs/month with photophobia, and N/V that can last up to 2-3 days. Takes Excedrin PRN w/ mild relief. Follow up in 4-5 weeks Total time spent today was 30 minutes of which greater than 50% was spent on coordinating and counseling We are a board certified obesity and weight management practice Patient has trialed behavioral modification, dietary restrictions and exercise for a minimum of 6 months The most recent [place] [employer] of clinical endocrinologists and [place] [employer]in[employer] guidelines recommend patients who have overweight BMI or obesity BMI, who also have metabolic syndrome, prediabetes, or at risk of developing type 2 diabetes should aim for a weight loss goal of at least 10% of the baseline body weight Patient counseled regarding effects of GLP/GIP-1 agonists, and other FDA approved wgt loss meds with regards to a multifactorial approach of weight loss as mentioned above and not solely appetite suppression. We have discussed the mechanism of GLP-1's/GIP, dual incretins, appetitite suppressants I think this would be fantastic option for her given her metabolic workup and body composition We have discussed the risks and benefits and side effects including/and not limited to Sarcopenia, intestinal obstruction, constipation, nausea, lethargy, headache Discussed importance of protein consumption for muscle maintenance as well as strength and resistance training ,probiotics, B12 complex biotin , iron and other nutrients, To help avoid telogen effluvium We have discussed the lifelong requirement of nutritional supplementation And adherence to an exercise regimen as well as importance of follow-up The patient understands and agrees There is no history of medullary thyroid cancer or multiple endocrine neoplasia There is also no history of cardiovascular disease, hypertension, palpitations, or arrhythmias In the setting of potential stimulant/amphetami ne use such as phentermine We have also discussed risks and benefits, and the use of compounded medications to help offset the national shortages as well as financial implications vs trade name drugs Patient was reassured and welcomed to the practice. We discussed that we stress a hollistic medical approach with emphasis on lifestyle modification. Patient was informed that a healthy lifestyle with exercise and good eating habits can help reduce his risk of medical complications. He is explained that obesity increases his risk of diabetes, cardiovascular disease, or organ damage. We spent a lot of time discussing the relationship between food, exercise, sleep, mental health and obesity. Patient was counseled on the importance EATING local, organic food when possible. Patient was educated on clean 15 and dirty dozen. I provided information about reading books called The Food Rules by Clyde Allred and Eat Fat Get Lean by Dr Caesar Wynne. Self education is important in the journey for weight management. Patient was offered diagnostic testing. We want to measure visceral adiposity, advanced body composition, adverse lipids, fatty acid balance, risk for heart disease and atherosclerosis, markers of inflammation and genetic susceptibility. Patient was counseled on weight management and was advised to lose weight using A. Meal Replacement Products We discussed the lifelong requirement of nutritional supplementation and adherence to an exercise regimen as well as importance of dietary follow-up Patient was educated on the replacement products called optifast. This is a good way of taking fixed amount of calories. It has been shown in studies to be ineffective weight management tool. We also recommend maintaining adequate protein intake and muscle composition, 1.5mg/kg This however has to be coupled with lifestyle intervention as well as laboratory data and EKG monitoring. It is impossible to know how a person will tolerate complete meal replacement. The side effects of meal replacement and weight loss could include syncopal attacks, dizziness, gallstones, potential cholecystectomy, possible heart attack and even . The benefits of meal replacement would be potential weight loss but no guarantees can be made. Meal replacement products are not covered by insurance. Once the patient has bought these products we cannot return them B. Lifestyle management which includes several strategies as below 1. Eat a low carbohydrate good fat good protein diet. Eliminate refined carbohydrates from the diet. Continue blood sugar and sugared beverages. Eat local organic when possible. Cook your own meals. Read food labels. None about healthy snacks. Portion control and food with low glycemic index 2. Exercise regularly. Try to get at least 6000 steps a day. Use a predominant to track activity level. Consider using apps like DiabetOmics, [employer]Love[employer], lose it, stick as needed for self-monitoring and weight management. Consider group exercises. Consider hiring a system trainer. Regular exercise is ward to sustainable health and prevents as a buffer against weight regain 3. Sleep is most important for healing. Tried to sleep at least 8 hours a night. A good quality sleep needs a sleep ritual with ideal room temperature of around 68. It might help to take a shower and have no electronics in the room and sleep in a very dark room without artificial light. Start her sleep routine and get up early in the morning and go to bed on time 4. Make a social connection. Surround yourself with positive people with positive energy. Connect with friends and family. 5. Get into the habit of meditating and mindfulness while doing everything. 6. Go outside and connect with nature. C. Prescription medications Patient was educated on the use of prescription medications for medical weight loss. This is a growing list and includes phentermine, Topamax,Qsymia, contrave, belviq and saxenda. All prescription medications could have side effects including but not limited to kidney stones, seizure disorder cardiac arrhythmias heart attack pancreatitis etc. etc.. Patient was encouraged to read the prescription insert and have coaching with their pharmacist and make an informed decision about taking medication and know that these medications are being prescribed with good intentions and we do not know how a patient would react to her medication. Sudden medications are FDA approved for weight loss and there is also off label use depending on patient's inability to afford medications in an attempt to lose weight D. Behavioral counseling was done to establish a relationship between food and an mood. Patient was provided information about local counseling and psychiatry and Dr Mitchell at [facility]. We would like to cover regular topics and build on low glycemic eating exercise mindful eating, using yoga and meditation along with deep breathing and connecting with friends and family. E. MASS PAT reviewed, Patient's current medications were reviewed and opinion was given on medication that can cause weight gain and can be substituted F. Patient was assessed for risk with obesity including and not limiting to atherosclerosis heart disease stroke kidney disease, restrictive lung disease, irritable bowel syndrome and overall mortality. Risk of developing prediabetes diabetes and metabolic syndrome was discussed G. Therapeutic plan: We have decided to make therapeutic plan which would include choosing wisely on calories restricting portion getting active, tracking weight, getting good quality sleep and working on time management H. Patient will follow up in (4) weeks for weight management Of note, some information is being carried forward from prior records for informational purposes only and is being cited so that efficiency, safety and quality of the patient's care is not compromised This note was prepared using voice recognition software and direct typing Please excuse inadvertent fire sprinkler designer or typing errors, or uncorrected word substitutions Although every attempt has been made by the provider to proofread this document, occasional misspellings and typographical errors may still be present Due to the previous pandemic, and the use of personal protective equipment (PPE) This may decrease voice recognition accuracy Inadvertent fire sprinkler designer errors may occur 04/01/2024 Obesity (BMI 30-39.9) (ICD-10 - E66.9) #Weight Management 04/01/2024 Patient seen today for weight management: _update labs start Zepbound Will follow up in 6 weeks On iron supplementation with improvement MCV Patient has been found to be obese with a BMI of (37). Patient has class (2) obesity. We have discussed the mechanism of GLP-1's/GIP I think this would be fantastic option for her given her metabolic workup and body composition We have discussed the risks and benefits and side effects There is no history of medullary thyroid cancer or multiple endocrine neoplasia -HLD-Recommended taking fish oil suppplements concomitantly. -Obesity- Recommended lifestyle medications - healthy diet, increasing fiber, cutting out alcohol/sugar and exercising to decrease trig levels. Discussed weight loss strategies and weight loss strategies/GLP-1, including phentermine. -Vit D deficiency- will begin taking Vit D. -iorn deficiency anemia- start ferrous sulfate supplementation -migraines 2-3xs/month with photophobia, and N/V that can last up to 2-3 days. Takes Excedrin PRN w/ mild relief. Follow up in 4-5 weeks Total time spent today was 30 minutes of which greater than 50% was spent on coordinating and counseling We are a board certified obesity and weight management practice Patient has trialed behavioral modification, dietary restrictions and exercise for a minimum of 6 months The most recent [place] [employer] of clinical endocrinologists and [place] [employer]in[employer] guidelines recommend patients who have overweight BMI or obesity BMI, who also have metabolic syndrome, prediabetes, or at risk of developing type 2 diabetes should aim for a weight loss goal of at least 10% of the baseline body weight Patient counseled regarding effects of GLP/GIP-1 agonists, and other FDA approved wgt loss meds with regards to a multifactorial approach of weight loss as mentioned above and not solely appetite suppression. We have discussed the mechanism of GLP-1's/GIP, dual incretins, appetitite suppressants I think this would be fantastic option for her given her metabolic workup and body composition We have discussed the risks and benefits and side effects including/and not limited to Sarcopenia, intestinal obstruction, constipation, nausea, lethargy, headache Discussed importance of protein consumption for muscle maintenance as well as strength and resistance training ,probiotics, B12 complex biotin , iron and other nutrients, To help avoid telogen effluvium We have discussed the lifelong requirement of nutritional supplementation And adherence to an exercise regimen as well as importance of follow-up The patient understands and agrees There is no history of medullary thyroid cancer or multiple endocrine neoplasia There is also no history of cardiovascular disease, hypertension, palpitations, or arrhythmias In the setting of potential stimulant/amphetami ne use such as phentermine We have also discussed risks and benefits, and the use of compounded medications to help offset the national shortages as well as financial implications vs trade name drugs Patient was reassured and welcomed to the practice. We discussed that we stress a hollistic medical approach with emphasis on lifestyle modification. Patient was informed that a healthy lifestyle with exercise and good eating habits can help reduce his risk of medical complications. He is explained that obesity increases his risk of diabetes, cardiovascular disease, or organ damage. We spent a lot of time discussing the relationship between food, exercise, sleep, mental health and obesity. Patient was counseled on the importance EATING local, organic food when possible. Patient was educated on clean 15 and dirty dozen. I provided information about reading books called The Food Rules by Clyde Allred and Eat Fat Get Lean by Dr Caesar Wynne. Self education is important in the journey for weight management. Patient was offered diagnostic testing. We want to measure visceral adiposity, advanced body composition, adverse lipids, fatty acid balance, risk for heart disease and atherosclerosis, markers of inflammation and genetic susceptibility. Patient was counseled on weight management and was advised to lose weight using A. Meal Replacement Products We discussed the lifelong requirement of nutritional supplementation and adherence to an exercise regimen as well as importance of dietary follow-up Patient was educated on the replacement products called optifast. This is a good way of taking fixed amount of calories. It has been shown in studies to be ineffective weight management tool. We also recommend maintaining adequate protein intake and muscle composition, 1.5mg/kg This however has to be coupled with lifestyle intervention as well as laboratory data and EKG monitoring. It is impossible to know how a person will tolerate complete meal replacement. The side effects of meal replacement and weight loss could include syncopal attacks, dizziness, gallstones, potential cholecystectomy, possible heart attack and even . The benefits of meal replacement would be potential weight loss but no guarantees can be made. Meal replacement products are not covered by insurance. Once the patient has bought these products we cannot return them B. Lifestyle management which includes several strategies as below 1. Eat a low carbohydrate good fat good protein diet. Eliminate refined carbohydrates from the diet. Continue blood sugar and sugared beverages. Eat local organic when possible. Cook your own meals. Read food labels. None about healthy snacks. Portion control and food with low glycemic index 2. Exercise regularly. Try to get at least 6000 steps a day. Use a predominant to track activity level. Consider using apps like DiabetOmics, Retrevo, lose it, stick as needed for self-monitoring and weight management. Consider group exercises. Consider hiring a system trainer. Regular exercise is ward to sustainable health and prevents as a buffer against weight regain 3. Sleep is most important for healing. Tried to sleep at least 8 hours a night. A good quality sleep needs a sleep ritual with ideal room temperature of around 68. It might help to take a shower and have no electronics in the room and sleep in a very dark room without artificial light. Start her sleep routine and get up early in the morning and go to bed on time 4. Make a social connection. Surround yourself with positive people with positive energy. Connect with friends and family. 5. Get into the habit of meditating and mindfulness while doing everything. 6. Go outside and connect with nature. C. Prescription medications Patient was educated on the use of prescription medications for medical weight loss. This is a growing list and includes phentermine, Topamax,Qsymia, contrave, belviq and saxenda. All prescription medications could have side effects including but not limited to kidney stones, seizure disorder cardiac arrhythmias heart attack pancreatitis etc. etc.. Patient was encouraged to read the prescription insert and have coaching with their pharmacist and make an informed decision about taking medication and know that these medications are being prescribed with good intentions and we do not know how a patient would react to her medication. Sudden medications are FDA approved for weight loss and there is also off label use depending on patient's inability to afford medications in an attempt to lose weight D. Behavioral counseling was done to establish a relationship between food and an mood. Patient was provided information about local counseling and psychiatry and Dr Mitchell at [facility]. We would like to cover regular topics and build on low glycemic eating exercise mindful eating, using yoga and meditation along with deep breathing and connecting with friends and family. E. MASS PAT reviewed, Patient's current medications were reviewed and opinion was given on medication that can cause weight gain and can be substituted F. Patient was assessed for risk with obesity including and not limiting to atherosclerosis heart disease stroke kidney disease, restrictive lung disease, irritable bowel syndrome and overall mortality. Risk of developing prediabetes diabetes and metabolic syndrome was discussed G. Therapeutic plan: We have decided to make therapeutic plan which would include choosing wisely on calories restricting portion getting active, tracking weight, getting good quality sleep and working on time management H. Patient will follow up in (4) weeks for weight management Of note, some information is being carried forward from prior records for informational purposes only and is being cited so that efficiency, safety and quality of the patient's care is not compromised This note was prepared using voice recognition software and direct typing Please excuse inadvertent fire sprinkler designer or typing errors, or uncorrected word substitutions Although every attempt has been made by the provider to proofread this document, occasional misspellings and typographical errors may still be present Due to the previous pandemic, and the use of personal protective equipment (PPE) This may decrease voice recognition accuracy Inadvertent fire sprinkler designer errors may occur 04/01/2024 Dietary counseling and surveillance (ICD-10 - Z71.3) #Weight Management 04/01/2024 Patient seen today for weight management: _update labs start Zepbound Will follow up in 6 weeks On iron supplementation with improvement MCV Patient has been found to be obese with a BMI of (37). Patient has class (2) obesity. We have discussed the mechanism of GLP-1's/GIP I think this would be fantastic option for her given her metabolic workup and body composition We have discussed the risks and benefits and side effects There is no history of medullary thyroid cancer or multiple endocrine neoplasia -HLD-Recommended taking fish oil suppplements concomitantly. -Obesity- Recommended lifestyle medications - healthy diet, increasing fiber, cutting out alcohol/sugar and exercising to decrease trig levels. Discussed weight loss strategies and weight loss strategies/GLP-1, including phentermine. -Vit D deficiency- will begin taking Vit D. -iorn deficiency anemia- start ferrous sulfate supplementation -migraines 2-3xs/month with photophobia, and N/V that can last up to 2-3 days. Takes Excedrin PRN w/ mild relief. Follow up in 4-5 weeks Total time spent today was 30 minutes of which greater than 50% was spent on coordinating and counseling We are a board certified obesity and weight management practice Patient has trialed behavioral modification, dietary restrictions and exercise for a minimum of 6 months The most recent [place] [employer] of clinical endocrinologists and [place] [employer]in[employer] guidelines recommend patients who have overweight BMI or obesity BMI, who also have metabolic syndrome, prediabetes, or at risk of developing type 2 diabetes should aim for a weight loss goal of at least 10% of the baseline body weight Patient counseled regarding effects of GLP/GIP-1 agonists, and other FDA approved wgt loss meds with regards to a multifactorial approach of weight loss as mentioned above and not solely appetite suppression. We have discussed the mechanism of GLP-1's/GIP, dual incretins, appetitite suppressants I think this would be fantastic option for her given her metabolic workup and body composition We have discussed the risks and benefits and side effects including/and not limited to Sarcopenia, intestinal obstruction, constipation, nausea, lethargy, headache Discussed importance of protein consumption for muscle maintenance as well as strength and resistance training ,probiotics, B12 complex biotin , iron and other nutrients, To help avoid telogen effluvium We have discussed the lifelong requirement of nutritional supplementation And adherence to an exercise regimen as well as importance of follow-up The patient understands and agrees There is no history of medullary thyroid cancer or multiple endocrine neoplasia There is also no history of cardiovascular disease, hypertension, palpitations, or arrhythmias In the setting of potential stimulant/amphetami ne use such as phentermine We have also discussed risks and benefits, and the use of compounded medications to help offset the national shortages as well as financial implications vs trade name drugs Patient was reassured and welcomed to the practice. We discussed that we stress a hollistic medical approach with emphasis on lifestyle modification. Patient was informed that a healthy lifestyle with exercise and good eating habits can help reduce his risk of medical complications. He is explained that obesity increases his risk of diabetes, cardiovascular disease, or organ damage. We spent a lot of time discussing the relationship between food, exercise, sleep, mental health and obesity. Patient was counseled on the importance EATING local, organic food when possible. Patient was educated on clean 15 and dirty dozen. I provided information about reading books called The Food Rules by Clyde Allred and Eat Fat Get Lean by Dr Caesar Wynne. Self education is important in the journey for weight management. Patient was offered diagnostic testing. We want to measure visceral adiposity, advanced body composition, adverse lipids, fatty acid balance, risk for heart disease and atherosclerosis, markers of inflammation and genetic susceptibility. Patient was counseled on weight management and was advised to lose weight using A. Meal Replacement Products We discussed the lifelong requirement of nutritional supplementation and adherence to an exercise regimen as well as importance of dietary follow-up Patient was educated on the replacement products called optifast. This is a good way of taking fixed amount of calories. It has been shown in studies to be ineffective weight management tool. We also recommend maintaining adequate protein intake and muscle composition, 1.5mg/kg This however has to be coupled with lifestyle intervention as well as laboratory data and EKG monitoring. It is impossible to know how a person will tolerate complete meal replacement. The side effects of meal replacement and weight loss could include syncopal attacks, dizziness, gallstones, potential cholecystectomy, possible heart attack and even . The benefits of meal replacement would be potential weight loss but no guarantees can be made. Meal replacement products are not covered by insurance. Once the patient has bought these products we cannot return them B. Lifestyle management which includes several strategies as below 1. Eat a low carbohydrate good fat good protein diet. Eliminate refined carbohydrates from the diet. Continue blood sugar and sugared beverages. Eat local organic when possible. Cook your own meals. Read food labels. None about healthy snacks. Portion control and food with low glycemic index 2. Exercise regularly. Try to get at least 6000 steps a day. Use a predominant to track activity level. Consider using apps like [employer], [employer]Love[employer], lose it, stick as needed for self-monitoring and weight management. Consider group exercises. Consider hiring a system trainer. Regular exercise is ward to sustainable health and prevents as a buffer against weight regain 3. Sleep is most important for healing. Tried to sleep at least 8 hours a night. A good quality sleep needs a sleep ritual with ideal room temperature of around 68. It might help to take a shower and have no electronics in the room and sleep in a very dark room without artificial light. Start her sleep routine and get up early in the morning and go to bed on time 4. Make a social connection. Surround yourself with positive people with positive energy. Connect with friends and family. 5. Get into the habit of meditating and mindfulness while doing everything. 6. Go outside and connect with nature. C. Prescription medications Patient was educated on the use of prescription medications for medical weight loss. This is a growing list and includes phentermine, Topamax,Qsymia, contrave, belviq and saxenda. All prescription medications could have side effects including but not limited to kidney stones, seizure disorder cardiac arrhythmias heart attack pancreatitis etc. etc.. Patient was encouraged to read the prescription insert and have coaching with their pharmacist and make an informed decision about taking medication and know that these medications are being prescribed with good intentions and we do not know how a patient would react to her medication. Sudden medications are FDA approved for weight loss and there is also off label use depending on patient's inability to afford medications in an attempt to lose weight D. Behavioral counseling was done to establish a relationship between food and an mood. Patient was provided information about local counseling and psychiatry and Dr Mitchell at [facility]. We would like to cover regular topics and build on low glycemic eating exercise mindful eating, using yoga and meditation along with deep breathing and connecting with friends and family. E. MASS PAT reviewed, Patient's current medications were reviewed and opinion was given on medication that can cause weight gain and can be substituted F. Patient was assessed for risk with obesity including and not limiting to atherosclerosis heart disease stroke kidney disease, restrictive lung disease, irritable bowel syndrome and overall mortality. Risk of developing prediabetes diabetes and metabolic syndrome was discussed G. Therapeutic plan: We have decided to make therapeutic plan which would include choosing wisely on calories restricting portion getting active, tracking weight, getting good quality sleep and working on time management H. Patient will follow up in (4) weeks for weight management Of note, some information is being carried forward from prior records for informational purposes only and is being cited so that efficiency, safety and quality of the patient's care is not compromised This note was prepared using voice recognition software and direct typing Please excuse inadvertent fire sprinkler designer or typing errors, or uncorrected word substitutions Although every attempt has been made by the provider to proofread this document, occasional misspellings and typographical errors may still be present Due to the previous pandemic, and the use of personal protective equipment (PPE) This may decrease voice recognition accuracy Inadvertent fire sprinkler designer errors may occur 04/01/2024 Anxiety (ICD-10 - F41.9) #Weight Management 04/01/2024 Patient seen today for weight management: _update labs start Zepbound Will follow up in 6 weeks On iron supplementation with improvement MCV Patient has been found to be obese with a BMI of (37). Patient has class (2) obesity. We have discussed the mechanism of GLP-1's/GIP I think this would be fantastic option for her given her metabolic workup and body composition We have discussed the risks and benefits and side effects There is no history of medullary thyroid cancer or multiple endocrine neoplasia -HLD-Recommended taking fish oil suppplements concomitantly. -Obesity- Recommended lifestyle medications - healthy diet, increasing fiber, cutting out alcohol/sugar and exercising to decrease trig levels. Discussed weight loss strategies and weight loss strategies/GLP-1, including phentermine. -Vit D deficiency- will begin taking Vit D. -iorn deficiency anemia- start ferrous sulfate supplementation -migraines 2-3xs/month with photophobia, and N/V that can last up to 2-3 days. Takes Excedrin PRN w/ mild relief. Follow up in 4-5 weeks Total time spent today was 30 minutes of which greater than 50% was spent on coordinating and counseling We are a board certified obesity and weight management practice Patient has trialed behavioral modification, dietary restrictions and exercise for a minimum of 6 months The most recent [place] [employer] of clinical endocrinologists and [place] [employer] guidelines recommend patients who have overweight BMI or obesity BMI, who also have metabolic syndrome, prediabetes, or at risk of developing type 2 diabetes should aim for a weight loss goal of at least 10% of the baseline body weight Patient counseled regarding effects of GLP/GIP-1 agonists, and other FDA approved wgt loss meds with regards to a multifactorial approach of weight loss as mentioned above and not solely appetite suppression. We have discussed the mechanism of GLP-1's/GIP, dual incretins, appetitite suppressants I think this would be fantastic option for her given her metabolic workup and body composition We have discussed the risks and benefits and side effects including/and not limited to Sarcopenia, intestinal obstruction, constipation, nausea, lethargy, headache Discussed importance of protein consumption for muscle maintenance as well as strength and resistance training ,probiotics, B12 complex biotin , iron and other nutrients, To help avoid telogen effluvium We have discussed the lifelong requirement of nutritional supplementation And adherence to an exercise regimen as well as importance of follow-up The patient understands and agrees There is no history of medullary thyroid cancer or multiple endocrine neoplasia There is also no history of cardiovascular disease, hypertension, palpitations, or arrhythmias In the setting of potential stimulant/amphetami ne use such as phentermine We have also discussed risks and benefits, and the use of compounded medications to help offset the national shortages as well as financial implications vs trade name drugs Patient was reassured and welcomed to the practice. We discussed that we stress a hollistic medical approach with emphasis on lifestyle modification. Patient was informed that a healthy lifestyle with exercise and good eating habits can help reduce his risk of medical complications. He is explained that obesity increases his risk of diabetes, cardiovascular disease, or organ damage. We spent a lot of time discussing the relationship between food, exercise, sleep, mental health and obesity. Patient was counseled on the importance EATING local, organic food when possible. Patient was educated on clean 15 and dirty dozen. I provided information about reading books called The Food Rules by Clyde Allred and Eat Fat Get Lean by Dr Caesar Wynne. Self education is important in the journey for weight management. Patient was offered diagnostic testing. We want to measure visceral adiposity, advanced body composition, adverse lipids, fatty acid balance, risk for heart disease and atherosclerosis, markers of inflammation and genetic susceptibility. Patient was counseled on weight management and was advised to lose weight using A. Meal Replacement Products We discussed the lifelong requirement of nutritional supplementation and adherence to an exercise regimen as well as importance of dietary follow-up Patient was educated on the replacement products called optifast. This is a good way of taking fixed amount of calories. It has been shown in studies to be ineffective weight management tool. We also recommend maintaining adequate protein intake and muscle composition, 1.5mg/kg This however has to be coupled with lifestyle intervention as well as laboratory data and EKG monitoring. It is impossible to know how a person will tolerate complete meal replacement. The side effects of meal replacement and weight loss could include syncopal attacks, dizziness, gallstones, potential cholecystectomy, possible heart attack and even . The benefits of meal replacement would be potential weight loss but no guarantees can be made. Meal replacement products are not covered by insurance. Once the patient has bought these products we cannot return them B. Lifestyle management which includes several strategies as below 1. Eat a low carbohydrate good fat good protein diet. Eliminate refined carbohydrates from the diet. Continue blood sugar and sugared beverages. Eat local organic when possible. Cook your own meals. Read food labels. None about healthy snacks. Portion control and food with low glycemic index 2. Exercise regularly. Try to get at least 6000 steps a day. Use a predominant to track activity level. Consider using apps like [employer], [employer]Love[employer], lose it, stick as needed for self-monitoring and weight management. Consider group exercises. Consider hiring a system trainer. Regular exercise is ward to sustainable health and prevents as a buffer against weight regain 3. Sleep is most important for healing. Tried to sleep at least 8 hours a night. A good quality sleep needs a sleep ritual with ideal room temperature of around 68. It might help to take a shower and have no electronics in the room and sleep in a very dark room without artificial light. Start her sleep routine and get up early in the morning and go to bed on time 4. Make a social connection. Surround yourself with positive people with positive energy. Connect with friends and family. 5. Get into the habit of meditating and mindfulness while doing everything. 6. Go outside and connect with nature. C. Prescription medications Patient was educated on the use of prescription medications for medical weight loss. This is a growing list and includes phentermine, Topamax,Qsymia, contrave, belviq and saxenda. All prescription medications could have side effects including but not limited to kidney stones, seizure disorder cardiac arrhythmias heart attack pancreatitis etc. etc.. Patient was encouraged to read the prescription insert and have coaching with their pharmacist and make an informed decision about taking medication and know that these medications are being prescribed with good intentions and we do not know how a patient would react to her medication. Sudden medications are FDA approved for weight loss and there is also off label use depending on patient's inability to afford medications in an attempt to lose weight D. Behavioral counseling was done to establish a relationship between food and an mood. Patient was provided information about local counseling and psychiatry and Dr Mitchell at [facility]. We would like to cover regular topics and build on low glycemic eating exercise mindful eating, using yoga and meditation along with deep breathing and connecting with friends and family. E. MASS PAT reviewed, Patient's current medications were reviewed and opinion was given on medication that can cause weight gain and can be substituted F. Patient was assessed for risk with obesity including and not limiting to atherosclerosis heart disease stroke kidney disease, restrictive lung disease, irritable bowel syndrome and overall mortality. Risk of developing prediabetes diabetes and metabolic syndrome was discussed G. Therapeutic plan: We have decided to make therapeutic plan which would include choosing wisely on calories restricting portion getting active, tracking weight, getting good quality sleep and working on time management H. Patient will follow up in (4) weeks for weight management Of note, some information is being carried forward from prior records for informational purposes only and is being cited so that efficiency, safety and quality of the patient's care is not compromised This note was prepared using voice recognition software and direct typing Please excuse inadvertent fire sprinkler designer or typing errors, or uncorrected word substitutions Although every attempt has been made by the provider to proofread this document, occasional misspellings and typographical errors may still be present Due to the previous pandemic, and the use of personal protective equipment (PPE) This may decrease voice recognition accuracy Inadvertent fire sprinkler designer errors may occur 04/01/2024 Current mild episode of major depressive disorder without prior episode (ICD-10 - F32.0) #Weight Management 04/01/2024 Patient seen today for weight management: _update labs start Zepbound Will follow up in 6 weeks On iron supplementation with improvement MCV Patient has been found to be obese with a BMI of (37). Patient has class (2) obesity. We have discussed the mechanism of GLP-1's/GIP I think this would be fantastic option for her given her metabolic workup and body composition We have discussed the risks and benefits and side effects There is no history of medullary thyroid cancer or multiple endocrine neoplasia -HLD-Recommended taking fish oil suppplements concomitantly. -Obesity- Recommended lifestyle medications - healthy diet, increasing fiber, cutting out alcohol/sugar and exercising to decrease trig levels. Discussed weight loss strategies and weight loss strategies/GLP-1, including phentermine. -Vit D deficiency- will begin taking Vit D. -iorn deficiency anemia- start ferrous sulfate supplementation -migraines 2-3xs/month with photophobia, and N/V that can last up to 2-3 days. Takes Excedrin PRN w/ mild relief. Follow up in 4-5 weeks Total time spent today was 30 minutes of which greater than 50% was spent on coordinating and counseling We are a board certified obesity and weight management practice Patient has trialed behavioral modification, dietary restrictions and exercise for a minimum of 6 months The most recent [place] [employer] of clinical endocrinologists and [place] [employer]in[employer] guidelines recommend patients who have overweight BMI or obesity BMI, who also have metabolic syndrome, prediabetes, or at risk of developing type 2 diabetes should aim for a weight loss goal of at least 10% of the baseline body weight Patient counseled regarding effects of GLP/GIP-1 agonists, and other FDA approved wgt loss meds with regards to a multifactorial approach of weight loss as mentioned above and not solely appetite suppression. We have discussed the mechanism of GLP-1's/GIP, dual incretins, appetitite suppressants I think this would be fantastic option for her given her metabolic workup and body composition We have discussed the risks and benefits and side effects including/and not limited to Sarcopenia, intestinal obstruction, constipation, nausea, lethargy, headache Discussed importance of protein consumption for muscle maintenance as well as strength and resistance training ,probiotics, B12 complex biotin , iron and other nutrients, To help avoid telogen effluvium We have discussed the lifelong requirement of nutritional supplementation And adherence to an exercise regimen as well as importance of follow-up The patient understands and agrees There is no history of medullary thyroid cancer or multiple endocrine neoplasia There is also no history of cardiovascular disease, hypertension, palpitations, or arrhythmias In the setting of potential stimulant/amphetami ne use such as phentermine We have also discussed risks and benefits, and the use of compounded medications to help offset the national shortages as well as financial implications vs trade name drugs Patient was reassured and welcomed to the practice. We discussed that we stress a hollistic medical approach with emphasis on lifestyle modification. Patient was informed that a healthy lifestyle with exercise and good eating habits can help reduce his risk of medical complications. He is explained that obesity increases his risk of diabetes, cardiovascular disease, or organ damage. We spent a lot of time discussing the relationship between food, exercise, sleep, mental health and obesity. Patient was counseled on the importance EATING local, organic food when possible. Patient was educated on clean 15 and dirty dozen. I provided information about reading books called The Food Rules by Clyde Allred and Eat Fat Get Lean by Dr Caesar Wynne. Self education is important in the journey for weight management. Patient was offered diagnostic testing. We want to measure visceral adiposity, advanced body composition, adverse lipids, fatty acid balance, risk for heart disease and atherosclerosis, markers of inflammation and genetic susceptibility. Patient was counseled on weight management and was advised to lose weight using A. Meal Replacement Products We discussed the lifelong requirement of nutritional supplementation and adherence to an exercise regimen as well as importance of dietary follow-up Patient was educated on the replacement products called optifast. This is a good way of taking fixed amount of calories. It has been shown in studies to be ineffective weight management tool. We also recommend maintaining adequate protein intake and muscle composition, 1.5mg/kg This however has to be coupled with lifestyle intervention as well as laboratory data and EKG monitoring. It is impossible to know how a person will tolerate complete meal replacement. The side effects of meal replacement and weight loss could include syncopal attacks, dizziness, gallstones, potential cholecystectomy, possible heart attack and even . The benefits of meal replacement would be potential weight loss but no guarantees can be made. Meal replacement products are not covered by insurance. Once the patient has bought these products we cannot return them B. Lifestyle management which includes several strategies as below 1. Eat a low carbohydrate good fat good protein diet. Eliminate refined carbohydrates from the diet. Continue blood sugar and sugared beverages. Eat local organic when possible. Cook your own meals. Read food labels. None about healthy snacks. Portion control and food with low glycemic index 2. Exercise regularly. Try to get at least 6000 steps a day. Use a predominant to track activity level. Consider using apps like [employer], [employer]Lovepal, lose it, stick as needed for self-monitoring and weight management. Consider group exercises. Consider hiring a system trainer. Regular exercise is ward to sustainable health and prevents as a buffer against weight regain 3. Sleep is most important for healing. Tried to sleep at least 8 hours a night. A good quality sleep needs a sleep ritual with ideal room temperature of around 68. It might help to take a shower and have no electronics in the room and sleep in a very dark room without artificial light. Start her sleep routine and get up early in the morning and go to bed on time 4. Make a social connection. Surround yourself with positive people with positive energy. Connect with friends and family. 5. Get into the habit of meditating and mindfulness while doing everything. 6. Go outside and connect with nature. C. Prescription medications Patient was educated on the use of prescription medications for medical weight loss. This is a growing list and includes phentermine, Topamax,Qsymia, contrave, belviq and saxenda. All prescription medications could have side effects including but not limited to kidney stones, seizure disorder cardiac arrhythmias heart attack pancreatitis etc. etc.. Patient was encouraged to read the prescription insert and have coaching with their pharmacist and make an informed decision about taking medication and know that these medications are being prescribed with good intentions and we do not know how a patient would react to her medication. Sudden medications are FDA approved for weight loss and there is also off label use depending on patient's inability to afford medications in an attempt to lose weight D. Behavioral counseling was done to establish a relationship between food and an mood. Patient was provided information about local counseling and psychiatry and Dr Mitchell at [facility]. We would like to cover regular topics and build on low glycemic eating exercise mindful eating, using yoga and meditation along with deep breathing and connecting with friends and family. E. MASS PAT reviewed, Patient's current medications were reviewed and opinion was given on medication that can cause weight gain and can be substituted F. Patient was assessed for risk with obesity including and not limiting to atherosclerosis heart disease stroke kidney disease, restrictive lung disease, irritable bowel syndrome and overall mortality. Risk of developing prediabetes diabetes and metabolic syndrome was discussed G. Therapeutic plan: We have decided to make therapeutic plan which would include choosing wisely on calories restricting portion getting active, tracking weight, getting good quality sleep and working on time management H. Patient will follow up in (4) weeks for weight management Of note, some information is being carried forward from prior records for informational purposes only and is being cited so that efficiency, safety and quality of the patient's care is not compromised This note was prepared using voice recognition software and direct typing Please excuse inadvertent fire sprinkler designer or typing errors, or uncorrected word substitutions Although every attempt has been made by the provider to proofread this document, occasional misspellings and typographical errors may still be present Due to the previous pandemic, and the use of personal protective equipment (PPE) This may decrease voice recognition accuracy Inadvertent fire sprinkler designer errors may occur 04/01/2024 Hyperlipidemia, unspecified hyperlipidemia type (ICD-10 - E78.5) #Weight Management 04/01/2024 Patient seen today for weight management: _update labs start Zepbound Will follow up in 6 weeks On iron supplementation with improvement MCV Patient has been found to be obese with a BMI of (37). Patient has class (2) obesity. We have discussed the mechanism of GLP-1's/GIP I think this would be fantastic option for her given her metabolic workup and body composition We have discussed the risks and benefits and side effects There is no history of medullary thyroid cancer or multiple endocrine neoplasia -HLD-Recommended taking fish oil suppplements concomitantly. -Obesity- Recommended lifestyle medications - healthy diet, increasing fiber, cutting out alcohol/sugar and exercising to decrease trig levels. Discussed weight loss strategies and weight loss strategies/GLP-1, including phentermine. -Vit D deficiency- will begin taking Vit D. -iorn deficiency anemia- start ferrous sulfate supplementation -migraines 2-3xs/month with photophobia, and N/V that can last up to 2-3 days. Takes Excedrin PRN w/ mild relief. Follow up in 4-5 weeks Total time spent today was 30 minutes of which greater than 50% was spent on coordinating and counseling We are a board certified obesity and weight management practice Patient has trialed behavioral modification, dietary restrictions and exercise for a minimum of 6 months The most recent [place] [employer] of clinical endocrinologists and [place] [employer] of [employer]in[employer] guidelines recommend patients who have overweight BMI or obesity BMI, who also have metabolic syndrome, prediabetes, or at risk of developing type 2 diabetes should aim for a weight loss goal of at least 10% of the baseline body weight Patient counseled regarding effects of GLP/GIP-1 agonists, and other FDA approved wgt loss meds with regards to a multifactorial approach of weight loss as mentioned above and not solely appetite suppression. We have discussed the mechanism of GLP-1's/GIP, dual incretins, appetitite suppressants I think this would be fantastic option for her given her metabolic workup and body composition We have discussed the risks and benefits and side effects including/and not limited to Sarcopenia, intestinal obstruction, constipation, nausea, lethargy, headache Discussed importance of protein consumption for muscle maintenance as well as strength and resistance training ,probiotics, B12 complex biotin , iron and other nutrients, To help avoid telogen effluvium We have discussed the lifelong requirement of nutritional supplementation And adherence to an exercise regimen as well as importance of follow-up The patient understands and agrees There is no history of medullary thyroid cancer or multiple endocrine neoplasia There is also no history of cardiovascular disease, hypertension, palpitations, or arrhythmias In the setting of potential stimulant/amphetami ne use such as phentermine We have also discussed risks and benefits, and the use of compounded medications to help offset the national shortages as well as financial implications vs trade name drugs Patient was reassured and welcomed to the practice. We discussed that we stress a hollistic medical approach with emphasis on lifestyle modification. Patient was informed that a healthy lifestyle with exercise and good eating habits can help reduce his risk of medical complications. He is explained that obesity increases his risk of diabetes, cardiovascular disease, or organ damage. We spent a lot of time discussing the relationship between food, exercise, sleep, mental health and obesity. Patient was counseled on the importance EATING local, organic food when possible. Patient was educated on clean 15 and dirty dozen. I provided information about reading books called The Food Rules by Clyde Allred and Eat Fat Get Lean by Dr Caesar Wynne. Self education is important in the journey for weight management. Patient was offered diagnostic testing. We want to measure visceral adiposity, advanced body composition, adverse lipids, fatty acid balance, risk for heart disease and atherosclerosis, markers of inflammation and genetic susceptibility. Patient was counseled on weight management and was advised to lose weight using A. Meal Replacement Products We discussed the lifelong requirement of nutritional supplementation and adherence to an exercise regimen as well as importance of dietary follow-up Patient was educated on the replacement products called optifast. This is a good way of taking fixed amount of calories. It has been shown in studies to be ineffective weight management tool. We also recommend maintaining adequate protein intake and muscle composition, 1.5mg/kg This however has to be coupled with lifestyle intervention as well as laboratory data and EKG monitoring. It is impossible to know how a person will tolerate complete meal replacement. The side effects of meal replacement and weight loss could include syncopal attacks, dizziness, gallstones, potential cholecystectomy, possible heart attack and even . The benefits of meal replacement would be potential weight loss but no guarantees can be made. Meal replacement products are not covered by insurance. Once the patient has bought these products we cannot return them B. Lifestyle management which includes several strategies as below 1. Eat a low carbohydrate good fat good protein diet. Eliminate refined carbohydrates from the diet. Continue blood sugar and sugared beverages. Eat local organic when possible. Cook your own meals. Read food labels. None about healthy snacks. Portion control and food with low glycemic index 2. Exercise regularly. Try to get at least 6000 steps a day. Use a predominant to track activity level. Consider using apps like Di[employer], ThirdLovepal, lose it, stick as needed for self-monitoring and weight management. Consider group exercises. Consider hiring a system trainer. Regular exercise is ward to sustainable health and prevents as a buffer against weight regain 3. Sleep is most important for healing. Tried to sleep at least 8 hours a night. A good quality sleep needs a sleep ritual with ideal room temperature of around 68. It might help to take a shower and have no electronics in the room and sleep in a very dark room without artificial light. Start her sleep routine and get up early in the morning and go to bed on time 4. Make a social connection. Surround yourself with positive people with positive energy. Connect with friends and family. 5. Get into the habit of meditating and mindfulness while doing everything. 6. Go outside and connect with nature. C. Prescription medications Patient was educated on the use of prescription medications for medical weight loss. This is a growing list and includes phentermine, Topamax,Qsymia, contrave, belviq and saxenda. All prescription medications could have side effects including but not limited to kidney stones, seizure disorder cardiac arrhythmias heart attack pancreatitis etc. etc.. Patient was encouraged to read the prescription insert and have coaching with their pharmacist and make an informed decision about taking medication and know that these medications are being prescribed with good intentions and we do not know how a patient would react to her medication. Sudden medications are FDA approved for weight loss and there is also off label use depending on patient's inability to afford medications in an attempt to lose weight D. Behavioral counseling was done to establish a relationship between food and an mood. Patient was provided information about local counseling and psychiatry and Dr Mitchell at [facility]. We would like to cover regular topics and build on low glycemic eating exercise mindful eating, using yoga and meditation along with deep breathing and connecting with friends and family. E. MASS PAT reviewed, Patient's current medications were reviewed and opinion was given on medication that can cause weight gain and can be substituted F. Patient was assessed for risk with obesity including and not limiting to atherosclerosis heart disease stroke kidney disease, restrictive lung disease, irritable bowel syndrome and overall mortality. Risk of developing prediabetes diabetes and metabolic syndrome was discussed G. Therapeutic plan: We have decided to make therapeutic plan which would include choosing wisely on calories restricting portion getting active, tracking weight, getting good quality sleep and working on time management H. Patient will follow up in (4) weeks for weight management Of note, some information is being carried forward from prior records for informational purposes only and is being cited so that efficiency, safety and quality of the patient's care is not compromised This note was prepared using voice recognition software and direct typing Please excuse inadvertent fire sprinkler designer or typing errors, or uncorrected word substitutions Although every attempt has been made by the provider to proofread this document, occasional misspellings and typographical errors may still be present Due to the previous pandemic, and the use of personal protective equipment (PPE) This may decrease voice recognition accuracy Inadvertent fire sprinkler designer errors may occur 04/01/2024 Microcytosis (ICD-10 - R71.8) #Weight Management 04/01/2024 Patient seen today for weight management: _update labs start Zepbound Will follow up in 6 weeks On iron supplementation with improvement MCV Patient has been found to be obese with a BMI of (37). Patient has class (2) obesity. We have discussed the mechanism of GLP-1's/GIP I think this would be fantastic option for her given her metabolic workup and body composition We have discussed the risks and benefits and side effects There is no history of medullary thyroid cancer or multiple endocrine neoplasia -HLD-Recommended taking fish oil suppplements concomitantly. -Obesity- Recommended lifestyle medications - healthy diet, increasing fiber, cutting out alcohol/sugar and exercising to decrease trig levels. Discussed weight loss strategies and weight loss strategies/GLP-1, including phentermine. -Vit D deficiency- will begin taking Vit D. -iorn deficiency anemia- start ferrous sulfate supplementation -migraines 2-3xs/month with photophobia, and N/V that can last up to 2-3 days. Takes Excedrin PRN w/ mild relief. Follow up in 4-5 weeks Total time spent today was 30 minutes of which greater than 50% was spent on coordinating and counseling We are a board certified obesity and weight management practice Patient has trialed behavioral modification, dietary restrictions and exercise for a minimum of 6 months The most recent [place] [employer] of clinical endocrinologists and [place] [employer] of [employer]in[employer] guidelines recommend patients who have overweight BMI or obesity BMI, who also have metabolic syndrome, prediabetes, or at risk of developing type 2 diabetes should aim for a weight loss goal of at least 10% of the baseline body weight Patient counseled regarding effects of GLP/GIP-1 agonists, and other FDA approved wgt loss meds with regards to a multifactorial approach of weight loss as mentioned above and not solely appetite suppression. We have discussed the mechanism of GLP-1's/GIP, dual incretins, appetitite suppressants I think this would be fantastic option for her given her metabolic workup and body composition We have discussed the risks and benefits and side effects including/and not limited to Sarcopenia, intestinal obstruction, constipation, nausea, lethargy, headache Discussed importance of protein consumption for muscle maintenance as well as strength and resistance training ,probiotics, B12 complex biotin , iron and other nutrients, To help avoid telogen effluvium We have discussed the lifelong requirement of nutritional supplementation And adherence to an exercise regimen as well as importance of follow-up The patient understands and agrees There is no history of medullary thyroid cancer or multiple endocrine neoplasia There is also no history of cardiovascular disease, hypertension, palpitations, or arrhythmias In the setting of potential stimulant/amphetami ne use such as phentermine We have also discussed risks and benefits, and the use of compounded medications to help offset the national shortages as well as financial implications vs trade name drugs Patient was reassured and welcomed to the practice. We discussed that we stress a hollistic medical approach with emphasis on lifestyle modification. Patient was informed that a healthy lifestyle with exercise and good eating habits can help reduce his risk of medical complications. He is explained that obesity increases his risk of diabetes, cardiovascular disease, or organ damage. We spent a lot of time discussing the relationship between food, exercise, sleep, mental health and obesity. Patient was counseled on the importance EATING local, organic food when possible. Patient was educated on clean 15 and dirty dozen. I provided information about reading books called The Food Rules by Clyde Allred and Eat Fat Get Lean by Dr Caesar Wynne. Self education is important in the journey for weight management. Patient was offered diagnostic testing. We want to measure visceral adiposity, advanced body composition, adverse lipids, fatty acid balance, risk for heart disease and atherosclerosis, markers of inflammation and genetic susceptibility. Patient was counseled on weight management and was advised to lose weight using A. Meal Replacement Products We discussed the lifelong requirement of nutritional supplementation and adherence to an exercise regimen as well as importance of dietary follow-up Patient was educated on the replacement products called optifast. This is a good way of taking fixed amount of calories. It has been shown in studies to be ineffective weight management tool. We also recommend maintaining adequate protein intake and muscle composition, 1.5mg/kg This however has to be coupled with lifestyle intervention as well as laboratory data and EKG monitoring. It is impossible to know how a person will tolerate complete meal replacement. The side effects of meal replacement and weight loss could include syncopal attacks, dizziness, gallstones, potential cholecystectomy, possible heart attack and even . The benefits of meal replacement would be potential weight loss but no guarantees can be made. Meal replacement products are not covered by insurance. Once the patient has bought these products we cannot return them B. Lifestyle management which includes several strategies as below 1. Eat a low carbohydrate good fat good protein diet. Eliminate refined carbohydrates from the diet. Continue blood sugar and sugared beverages. Eat local organic when possible. Cook your own meals. Read food labels. None about healthy snacks. Portion control and food with low glycemic index 2. Exercise regularly. Try to get at least 6000 steps a day. Use a predominant to track activity level. Consider using apps like Di[employer]etOmics, ThirdLovepal, lose it, stick as needed for self-monitoring and weight management. Consider group exercises. Consider hiring a system trainer. Regular exercise is ward to sustainable health and prevents as a buffer against weight regain 3. Sleep is most important for healing. Tried to sleep at least 8 hours a night. A good quality sleep needs a sleep ritual with ideal room temperature of around 68. It might help to take a shower and have no electronics in the room and sleep in a very dark room without artificial light. Start her sleep routine and get up early in the morning and go to bed on time 4. Make a social connection. Surround yourself with positive people with positive energy. Connect with friends and family. 5. Get into the habit of meditating and mindfulness while doing everything. 6. Go outside and connect with nature. C. Prescription medications Patient was educated on the use of prescription medications for medical weight loss. This is a growing list and includes phentermine, Topamax,Qsymia, contrave, belviq and saxenda. All prescription medications could have side effects including but not limited to kidney stones, seizure disorder cardiac arrhythmias heart attack pancreatitis etc. etc.. Patient was encouraged to read the prescription insert and have coaching with their pharmacist and make an informed decision about taking medication and know that these medications are being prescribed with good intentions and we do not know how a patient would react to her medication. Sudden medications are FDA approved for weight loss and there is also off label use depending on patient's inability to afford medications in an attempt to lose weight D. Behavioral counseling was done to establish a relationship between food and an mood. Patient was provided information about local counseling and psychiatry and Dr Mitchell at [facility]. We would like to cover regular topics and build on low glycemic eating exercise mindful eating, using yoga and meditation along with deep breathing and connecting with friends and family. E. MASS PAT reviewed, Patient's current medications were reviewed and opinion was given on medication that can cause weight gain and can be substituted F. Patient was assessed for risk with obesity including and not limiting to atherosclerosis heart disease stroke kidney disease, restrictive lung disease, irritable bowel syndrome and overall mortality. Risk of developing prediabetes diabetes and metabolic syndrome was discussed G. Therapeutic plan: We have decided to make therapeutic plan which would include choosing wisely on calories restricting portion getting active, tracking weight, getting good quality sleep and working on time management H. Patient will follow up in (4) weeks for weight management Of note, some information is being carried forward from prior records for informational purposes only and is being cited so that efficiency, safety and quality of the patient's care is not compromised This note was prepared using voice recognition software and direct typing Please excuse inadvertent fire sprinkler designer or typing errors, or uncorrected word substitutions Although every attempt has been made by the provider to proofread this document, occasional misspellings and typographical errors may still be present Due to the previous pandemic, and the use of personal protective equipment (PPE) This may decrease voice recognition accuracy Inadvertent fire sprinkler designer errors may occur Plan Of Treatment Medication Medication Name Sig Start Date Stop Date Notes Zepbound 2.5 MG/0.5ML Solution Auto-injector 2.5 mg weekly Subcutaneous Weekly; Duration: 30 days History and Physical Notes * HPI (History of Present Illness) Category Sub-Category Detail Notes Category Not es Constitutional Patient is here today for wgt mgt f/u visit. Full past medical history, social history, family history, allergies and current medications were reviewed and updated. They are coming to us from previous practice, [facility]. Acute Concerns/Problem List: #Weight Management 04/01/2024 Needs updated labs on medical weight management. Has not been on medication due to national shortages /Insurance prior authorization Started with system trainer recently Last A1c 5.6 tolerating med well, early satiety, no side effects Discussed importance of protein consumption for muscle maintenance, strength and resistance training as well as probiotics, B12 complex biotin , iron and other nutrients, To also help avoid telogen effluvium while on weight loss medications such as GLP-1 migraines 2-3/month Recently stopped Topiramate 25mg d/t interference with control Started on new medication Sees Psychiatrist, in , for med mgt Understands BMI is obese does have some fatigue, also Vit D def Started on iron with improvement in MCV 04/01/2024, Weight , BMI 01/28/2024, Weight 214 , BMI 37 Weight 06/13/2023: Weight 213lbs, BMI 37, (-2lbs) Weight 05/02/2023: Weight 215lbs, BMI 38 (-5lbs) Weight 03/14/2023: Weight 220lbs, BMI 39 (+12lbs) (Not on medication) Weight 11/15/2022: Weight 208lbs, BMI 36 Weight at CPE 08/16/2022- 208 lbs, BMI 36 Comprehensive labs August 2022 CBC mostly stable MCV is low at 74.7 with a low MCHC, normal platelets Normal hemoglobin hematocrit Renal function electrolytes and LFTs are stable Hemoglobin A1c of 5.6 Total cholesterol 231, LDL 138, HDL 57, triglycerides 181 Vitamin D is 18 TSH 0.87 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 Examination Category Sub-Category Detail Notes Category Not es General Examination GENERAL APPEARANCE: in no ac donaldo distress, well developed, well nourished HEAD: normocephalic, atrau matic EYES: pupils equal, round, reactive to light and accommodation EARS: normal THROAT: clear NECK/THYROID: neck supple, full ra nge of motion, no cervical lymphadenopathy HEART: no murmurs, regular rate and rhythm, S1, S2 normal LUNGS: clear to auscultatio n bilaterally ABDOMEN: normal, bowel sounds present, soft, nontender, nondistended NEUROLOGIC: nonfocal, motor stre ngth normal upper and lower extremities, sensory exam intact SKIN: no suspicious lesion s, warm and dry EXTREMITIES: no clubbing, cyanosi s, or edema ORAL CAVITY: mucosa moist Progress Notes * RORO FAIRJose PELLETIERrubinaaDOB: (30 yo F)Acc No.[id number]:04/01/2024 Patient: Madhuri Olivarez Provider: Skip KNUTSON NP :[id number] A ge:29 Y S ex:Female Date:04/01/2024 Address:[address] [place], [place] [id number] Subjective: * Chief Complaints: * HPI: C onstitutional: Patient is here today for wgt mgt f/u visit. Full past medical history, social history, family history, allergies and current medications were reviewed and updated. They are coming to us from previous practice, [facility]. Acute Concerns/Problem List: #Weight Management 04/01/2024 Needs updated labs on medical weight management. Has not been on medication due to national shortages /Insurance prior authorization Started with system trainer recently Last A1c 5.6 tolerating med well, early satiety, no side effects Discussed importance of protein consumption for muscle maintenance, strength and resistance training as well as probiotics, B12 complex biotin , iron and other nutrients, To also help avoid telogen effluvium while on weight loss medications such as GLP-1 migraines 2-3/month Recently stopped Topiramate 25mg d/t interference with control Started on new medication Sees Psychiatrist, in [place], for med mgt Understands BMI is obese does have some fatigue, also Vit D def Started on iron with improvement in MCV 04/01/2024, Weight , BMI 01/28/2024, Weight 214 , BMI 37 Weight 06/13/2023: Weight 213lbs, BMI 37, (-2lbs) Weight 05/02/2023: Weight 215lbs, BMI 38 (-5lbs) Weight 03/14/2023: Weight 220lbs, BMI 39 (+12lbs) (Not on medication) Weight 11/15/2022: Weight 208lbs, BMI 36 Weight at CPE 08/16/2022- 208 lbs, BMI 36 Comprehensive labs August 2022 CBC mostly stable MCV is low at 74.7 with a low MCHC, normal platelets Normal hemoglobin hematocrit Renal function electrolytes and LFTs are stable Hemoglobin A1c of 5.6 Total cholesterol 231, LDL 138, HDL 57, triglycerides 181 Vitamin D is 18 TSH 0.87 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 * ROS: A ll Other Systems: Review of Systems (ROS) A ll others negative except those mentioned in HPI. Objective: * Examination: G eneral Examination: GENERAL APPEARANCE: i n no acute distress, well developed, well nourished. HEAD: n ormocephalic, atraumatic. EYES: p upils equal, round, reactive to light and accommodation. EARS: n ormal. ORAL CAVITY: m ucosa moist. THROAT: c lear. NECK/THYROID: n brenda supple, full range of motion, no cervical lymphadenopathy. SKIN: n o suspicious lesions, warm and dry. HEART: n o murmurs, regular rate and rhythm, S1, S2 normal.? LUNGS: c lear to auscultation bilaterally. ABDOMEN: n ormal, bowel sounds present, soft, nontender, nondistended. EXTREMITIES: n o clubbing, cyanosis, or edema. NEUROLOGIC: n onfocal, motor strength normal upper and lower extremities, sensory exam intact. Assessment: * Assessment: 1. O besity (BMI 30-39.9) - E66.9 (Primary) 2 . B IN 37.0-37.9, adult - Z68.37 3 . D ietary counseling and surveillance - Z71.3 4 . A nxiety - F41.9 5 . C urrent mild episode of major depressive disorder without prior episode - F32.0 6 . H yperlipidemia, unspecified hyperlipidemia type - E78.5? 7. M icrocytosis - R71.8 #Weight Management 04/01/2024 Patient seen today for weight management: _update labs start Zepbound Will follow up in 6 weeks On iron supplementation with improvement MCV Patient has been found to be obese with a BMI of (37). Patient has class (2) obesity. We have discussed the mechanism of GLP-1's/GIP I think this would be fantastic option for her given her metabolic workup and body composition We have discussed the risks and benefits and side effects There is no history of medullary thyroid cancer or multiple endocrine neoplasia -HLD-Recommended taking fish oil suppplements concomitantly. -Obesity- Recommended lifestyle medications - healthy diet, increasing fiber, cutting out alcohol/sugar and exercising to decrease trig levels. Discussed weight loss strategies and weight loss strategies/GLP-1, including phentermine. -Vit D deficiency- will begin taking Vit D. -iorn deficiency anemia- start ferrous sulfate supplementation -migraines 2-3xs/month with photophobia, and N/V that can last up to 2-3 days. Takes Excedrin PRN w/ mild relief. Follow up in 4-5 weeks Total time spent today was 30 minutes of which greater than 50% was spent on coordinating and counseling We are a board certified obesity and weight management practice Patient has trialed behavioral modification, dietary restrictions and exercise for a minimum of 6 months The most recent [place] [employer] of clinical endocrinologists and [place] [employer] of endocrinology guidelines recommend patients who have overweight BMI or obesity BMI, who also have metabolic syndrome, prediabetes, or at risk of developing type 2 diabetes should aim for a weight loss goal of at least 10% of the baseline body weight Patient counseled regarding effects of GLP/GIP-1 agonists, and other FDA approved wgt loss meds with regards to a multifactorial approach of weight loss as mentioned above and not solely appetite suppression. We have discussed the mechanism of GLP-1's/GIP, dual incretins, appetitite suppressants I think this would be fantastic option for her given her metabolic workup and body composition We have discussed the risks and benefits and side effects including/and not limited to Sarcopenia, intestinal obstruction, constipation, nausea, lethargy, headache Discussed importance of protein consumption for muscle maintenance as well as strength and resistance training ,probiotics, B12 complex biotin , iron and other nutrients, To help avoid telogen effluvium We have discussed the lifelong requirement of nutritional supplementation And adherence to an exercise regimen as well as importance of follow-up The patient understands and agrees There is no history of medullary thyroid cancer or multiple endocrine neoplasia There is also no history of cardiovascular disease, hypertension, palpitations, or arrhythmias In the setting of potential stimulant/amphetamine use such as phentermine We have also discussed risks and benefits, and the use of compounded medications to help offset the national shortages as well as financial implications vs trade name drugs Patient was reassured and welcomed to the practice. We discussed that we stress a hollistic medical approach with emphasis on lifestyle modification. Patient was informed that a healthy lifestyle with exercise and good eating habits can help reduce his risk of medical complications. He is explained that obesity increases his risk of diabetes, cardiovascular disease, or organ damage. We spent a lot of time discussing the relationship between food, exercise, sleep, mental health and obesity. Patient was counseled on the importance EATING local, organic food when possible. Patient was educated on clean 15 and dirty dozen. I provided information about reading books called The Food Rules by Clyde Allred and Eat Fat Get Lean by Dr Caesar Wynne. Self education is important in the journey for weight management. Patient was offered diagnostic testing. We want to measure visceral adiposity, advanced body composition, adverse lipids, fatty acid balance, risk for heart disease and atherosclerosis, markers of inflammation and genetic susceptibility. Patient was counseled on weight management and was advised to lose weight using A. Meal Replacement Products We discussed the lifelong requirement of nutritional supplementation and adherence to an exercise regimen as well as importance of dietary follow-up Patient was educated on the replacement products called optifast. This is a good way of taking fixed amount of calories. It has been shown in studies to be ineffective weight management tool. We also recommend maintaining adequate protein intake and muscle composition, 1.5mg/kg This however has to be coupled with lifestyle intervention as well as laboratory data and EKG monitoring. It is impossible to know how a person will tolerate complete meal replacement. The side effects of meal replacement and weight loss could include syncopal attacks, dizziness, gallstones, potential cholecystectomy, possible heart attack and even . The benefits of meal replacement would be potential weight loss but no guarantees can be made. Meal replacement products are not covered by insurance. Once the patient has bought these products we cannot return them B. Lifestyle management which includes several strategies as below 1. Eat a low carbohydrate good fat good protein diet. Eliminate refined carbohydrates from the diet. Continue blood sugar and sugared beverages. Eat local organic when possible. Cook your own meals. Read food labels. None about healthy snacks. Portion control and food with low glycemic index 2. Exercise regularly. Try to get at least 6000 steps a day. Use a predominant to track activity level. Consider using apps like [employer], myfitXAPPmediapal, lose it, stick as needed for self-monitoring and weight management. Consider group exercises. Consider hiring a system trainer. Regular exercise is ward to sustainable health and prevents as a buffer against weight regain 3. Sleep is most important for healing. Tried to sleep at least 8 hours a night. A good quality sleep needs a sleep ritual with ideal room temperature of around 68. It might help to take a shower and have no electronics in the room and sleep in a very dark room without artificial light. Start her sleep routine and get up early in the morning and go to bed on time 4. Make a social connection. Surround yourself with positive people with positive energy. Connect with friends and family. 5. Get into the habit of meditating and mindfulness while doing everything. 6. Go outside and connect with nature. C. Prescription medications Patient was educated on the use of prescription medications for medical weight loss. This is a growing list and includes phentermine, Topamax,Qsymia, contrave, belviq and saxenda. All prescription medications could have side effects including but not limited to kidney stones, seizure disorder cardiac arrhythmias heart attack pancreatitis etc. etc.. Patient was encouraged to read the prescription insert and have coaching with their pharmacist and make an informed decision about taking medication and know that these medications are being prescribed with good intentions and we do not know how a patient would react to her medication. Sudden medications are FDA approved for weight loss and there is also off label use depending on patient's inability to afford medications in an attempt to lose weight D. Behavioral counseling was done to establish a relationship between food and an mood. Patient was provided information about local counseling and psychiatry and Dr Mitchell at [facility]. We would like to cover regular topics and build on low glycemic eating exercise mindful eating, using yoga and meditation along with deep breathing and connecting with friends and family. E. MASS PAT reviewed, Patient's current medications were reviewed and opinion was given on medication that can cause weight gain and can be substituted F. Patient was assessed for risk with obesity including and not limiting to atherosclerosis heart disease stroke kidney disease, restrictive lung disease, irritable bowel syndrome and overall mortality. Risk of developing prediabetes diabetes and metabolic syndrome was discussed G. Therapeutic plan: We have decided to make therapeutic plan which would include choosing wisely on calories restricting portion getting active, tracking weight, getting good quality sleep and working on time management H. Patient will follow up in (4) weeks for weight management Of note, some information is being carried forward from prior records for informational purposes only and is being cited so that efficiency, safety and quality of the patient's care is not compromised This note was prepared using voice recognition software and direct typing Please excuse inadvertent fire sprinkler designer or typing errors, or uncorrected word substitutions Although every attempt has been made by the provider to proofread this document, occasional misspellings and typographical errors may still be present Due to the previous pandemic, and the use of personal protective equipment (PPE) This may decrease voice recognition accuracy Inadvertent fire sprinkler designer errors may occur. Plan: * Treatment: * Electronic signature of CORBY KNUTSON on 08/08/2025 at 08:43 AM EST Sign off status: Pending * Provider: Skip KNUTSON NP Date: 0 04/01/2024 Generated for Clay medrano/Bean/Nguyen on: 10/09/2024 08:43 AM EST
--- OUTSIDE RECORDS SUMMARY | 2024-05-01 04:15 | XMS_ITS ---
Author Organization [facility] Address [address] [place] [address] Care Team Providers Care Hydroelectric Powerplant Supervisor Name Role Phone MATTSALTY BOSWELL Unavailable [phone] REASON FOR VISIT pt is here for wt mgmt follow up/pt unable to do seca due to computer malfunction Medications Medication SIG (Take, Route, Frequency, Duration) Notes Start Date End Date Status Nurtec 75 MG Tablet Disintegrating 1 tablet as needed on the tongue and allow to dissolve Orally every 48 hours; Duration: 90 days 04/07/2023 Active Wegovy 0.25mg 0.25mg 0.25 subcutaneously weekly; Duration: 30 days Active Zepbound 2.5 MG/0.5ML Solution Auto-injector 2.5 mg weekly Subcutaneous Weekly; Duration: 30 days Active Encounters Encounter Location Date Provider Diagnosis [facility] [address] [place] [address] 05/01/2024 SALTY KNUTSON BMI 37.0-37.9, adult Z68.37 ; Obesity (BMI 30-39.9) E66.9 ; Dietary counseling and surveillance Z71.3 ; Anxiety F41.9 ; Current mild episode of major depressive disorder without prior episode F32.0 ; Hyperlipidemia, unspecified hyperlipidemia type E78.5 and Microcytosis R71.8 Assessments Encounter Date Diagnosis (ICD Code) Assessment Notes Treatment Notes Treatment Clinical Notes Section Notes 05/01/2024 BMI 37.0-37.9, adult (ICD-10 - Z68.37) #Weight Management 05/01/2024 _update labs start Zepbound Will follow up [...] track activity level. Consider using apps like iMega, myfitnesspal, lose it, stick as needed for self-monitoring and weight management. Consider group exercises. Consider hiring a head animal trainer. Regular exercise is ward to sustainable [...] counseling and psychiatry and Dr Mitchell at [facility]. We would like to cover regular topics [...] software and direct typing Please excuse inadvertent model and mold maker or typing errors, or uncorrected word substitutions Although every attempt has been made by the provider to proofread this document, occasional misspellings and typographical errors may still be present Due to the previous pandemic, and the use of personal protective equipment (PPE) This may decrease voice recognition accuracy Inadvertent model and mold maker errors may occur 05/01/2024 Obesity (BMI 30-39.9) (ICD-10 - E66.9) #Weight Management 05/01/2024 _update labs start Zepbound Will follow up [...] books called The Food Rules by Clyde lAlred and Eat Fat Get Lean by Dr [...] track activity level. Consider using apps like iMega, myfitSimmerypal, lose it, stick as needed for self-monitoring and weight management. Consider group exercises. Consider hiring a head animal trainer. Regular exercise is ward to sustainable [...] counseling and psychiatry and Dr Mitchell at [facility]. We would like to cover regular topics [...] software and direct typing Please excuse inadvertent model and mold maker or typing errors, or uncorrected word substitutions Although every attempt has been made by the provider to proofread this document, occasional misspellings and typographical errors may still be present Due to the previous pandemic, and the use of personal protective equipment (PPE) This may decrease voice recognition accuracy Inadvertent model and mold maker errors may occur 05/01/2024 Dietary counseling and surveillance (ICD-10 - Z71.3) #Weight Management 05/01/2024 _update labs start Zepbound Will follow up [...] track activity level. Consider using apps like iMega, myfitnesspal, lose it, stick as needed for self-monitoring and weight management. Consider group exercises. Consider hiring a head animal trainer. Regular exercise is ward to sustainable [...] counseling and psychiatry and Dr Mitchell at [facility]. We would like to cover regular topics [...] software and direct typing Please excuse inadvertent model and mold maker or typing errors, or uncorrected word substitutions Although every attempt has been made by the provider to proofread this document, occasional misspellings and typographical errors may still be present Due to the previous pandemic, and the use of personal protective equipment (PPE) This may decrease voice recognition accuracy Inadvertent model and mold maker errors may occur 05/01/2024 Anxiety (ICD-10 - F41.9) #Weight Management 05/01/2024 _update labs start Estelita Will follow up in 6 weeks On [...] track activity level. Consider using apps like iMega, [place] Energypal, lose it, stick as needed for self-monitoring and weight management. Consider group exercises. Consider hiring a head animal trainer. Regular exercise is ward to sustainable [...] counseling and psychiatry and Dr Mitchell at [facility]. We would like to cover regular topics [...] software and direct typing Please excuse inadvertent model and mold maker or typing errors, or uncorrected word substitutions Although every attempt has been made by the provider to proofread this document, occasional misspellings and typographical errors may still be present Due to the previous pandemic, and the use of personal protective equipment (PPE) This may decrease voice recognition accuracy Inadvertent model and mold maker errors may occur 05/01/2024 Current mild episode of major depressive disorder without prior episode (ICD-10 - F32.0) #Weight Management 05/01/2024 _update labs start Zepbound Will follow up [...] track activity level. Consider using apps like iMega, [place] Energypal, lose it, stick as needed for self-monitoring and weight management. Consider group exercises. Consider hiring a head animal trainer. Regular exercise is ward to sustainable [...] counseling and psychiatry and Dr Mitchell at [facility]. We would like to cover regular topics [...] software and direct typing Please excuse inadvertent model and mold maker or typing errors, or uncorrected word substitutions Although every attempt has been made by the provider to proofread this document, occasional misspellings and typographical errors may still be present Due to the previous pandemic, and the use of personal protective equipment (PPE) This may decrease voice recognition accuracy Inadvertent model and mold maker errors may occur 05/01/2024 Hyperlipidemia, unspecified hyperlipidemia type (ICD-10 - E78.5) #Weight Management 05/01/2024 _update labs start Estelita Will follow up in 6 weeks On [...] track activity level. Consider using apps like iMega, [place] Energypal, lose it, stick as needed for self-monitoring and weight management. Consider group exercises. Consider hiring a head animal trainer. Regular exercise is ward to sustainable [...] counseling and psychiatry and Dr Mitchell at [facility]. We would like to cover regular topics [...] software and direct typing Please excuse inadvertent model and mold maker or typing errors, or uncorrected word substitutions Although every attempt has been made by the provider to proofread this document, occasional misspellings and typographical errors may still be present Due to the previous pandemic, and the use of personal protective equipment (PPE) This may decrease voice recognition accuracy Inadvertent model and mold maker errors may occur 05/01/2024 Microcytosis (ICD-10 - R71.8) #Weight Management 05/01/2024 _update labs start Zepbound Will follow up [...] track activity level. Consider using apps like iMega, [place] Energypal, lose it, stick as needed for self-monitoring and weight management. Consider group exercises. Consider hiring a head animal trainer. Regular exercise is ward to sustainable [...] counseling and psychiatry and Dr Mitchell at [facility]. We would like to cover regular topics [...] software and direct typing Please excuse inadvertent model and mold maker or typing errors, or uncorrected word substitutions Although every attempt has been made by the provider to proofread this document, occasional misspellings and typographical errors may still be present Due to the previous pandemic, and the use of personal protective equipment (PPE) This may decrease voice recognition accuracy Inadvertent model and mold maker errors may occur Plan Of Treatment Medication [...] [facility] Acute Concerns/Problem List: #Weight Management 05/01/2024 Needs updated labs on medical weight management. 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 Examination Category Sub-Category Detail Notes Category Not es General Examination GENERAL APPEARANCE: in no ac [place] distress, well developed, well nourished HEAD: normocephalic, [...] ORAL CAVITY: mucosa moist Progress Notes * Joslyn MARTINEZaDOB: (30 yo F)Acc No.[id number]:05/01/2024 Patient: Alma RousseauMadhuri couch Provider: Skip KNUTSON NP :1995 A ge:29 Y S ex:Female Date:05/01/2024 Address:[address] [place] [address] Subjective: * Chief Complaints: * P t is here for wt mgmt follow up/pt unable to do seca due to computer malfunction * HPI: C onstitutional: Patient is here today for wgt mgt f/u visit. Full past medical history, social history, family history, allergies and current medications were reviewed and updated. They are coming to us from previous practice, [facility]. Acute Concerns/Problem List: #Weight Management 05/01/2024 Needs updated labs on medical weight management. 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 * ROS: A ll Other Systems: Review of Systems (ROS) A ll others negative except those mentioned in HPI. * Medications: T akingWegovy 0.25mg 0.25mg 0.25 subcutaneously weekly Nurtec 75 MG Tablet Disintegrating 1 tablet as needed on the tongue and allow to dissolve Orally every 48 hours Zepbound 2.5 MG/0.5ML Solution Auto-injector 2.5 mg weekly Subcutaneous Weekly Taking Wegovy 0.25mg 0.25mg 0.25 subcutaneously weekly Taking Nurtec 75 MG Tablet Disintegrating 1 tablet as needed on the tongue and allow to dissolve Orally every 48 hours Taking Zepbound 2.5 MG/0.5ML Solution Auto-injector 2.5 mg weekly Subcutaneous Weekly Objective: * Examination: G eneral Examination: GENERAL [...] 30-39.9) - E66.9 (Primary) 2 . B DC 37.0-37.9, adult - Z68.37 3 . D ietary counseling and surveillance - Z71.3 4 . A nxiety - F41.9 5 . C urrent mild episode of major depressive disorder without prior episode - F32.0 6 . H yperlipidemia, unspecified hyperlipidemia type - E78.5? 7. M icrocytosis - R71.8 #Weight Management 05/01/2024 _update labs start Zepbound Will follow up [...] track activity level. Consider using apps like iMega, [place] Energypal, lose it, stick as needed for self-monitoring and weight management. Consider group exercises. Consider hiring a head animal trainer. Regular exercise is ward to sustainable [...] counseling and psychiatry and Dr Mitchell at [facility]. We would like to cover regular topics [...] software and direct typing Please excuse inadvertent model and mold maker or typing errors, or uncorrected word substitutions Although every attempt has been made by the provider to proofread this document, occasional misspellings and typographical errors may still be present Due to the previous pandemic, and the use of personal protective equipment (PPE) This may decrease voice recognition accuracy Inadvertent model and mold maker errors may occur. Plan: * Treatment: * Procedure Codes: 9 9199 NO SHOW OFFICE VISIT Billing Information: * Procedure Codes: 29915 NO SHOW OFFICE VISIT. * Electronic signature of CORBY KNUTSON on 08/08/2025 at 08:44 AM EST Sign off status: Pending * Provider: Skip KNUTSON NP Date: 0 05/01/2024 Generated for Clay medrano/Bean/Nguyen on: 10/09/2024 08:44 AM EST
--- NOTE | 2025-08-08 08:13 | A.OFFPC_ITS ---
Vital Signs 08/08/25 08:16 Height 5 ft 3 in Weight 225 lb 2 oz BMI 39.9 BP 138/76 Blood Pressure Location Rt brachial Position Sitting Respiration 13 Pulse 78 Pulse Source Pulse Oximeter Temp 97.7 F Temp Source Oral Pulse Oximetry (%) 99 Oxygen Delivery Method Room Air Intake Visit Reasons: Discuss weight management options Intake Note: Patient wants to discuss weight management options. Patient needs refill on meds and has been without them x 2 months. Agency Director Required: No Allergies No Known Allergies Allergy (Verified 08/08/25 08:38) Medication List - Last Reconciled 08/08/25 by Carmelita Weems, DELIVERY ANALYST- albuterol sulfate 90 mcg/actuation 1 puff inhalation Q4H PRN ferrous sulfate 325 mg PO DAILY sertraline 100 mg PO QAM Tobacco use date assessed: 08/08/25 Dental Screening Dental Screen Date: 08/08/25 Did you have a dental visit in the last 12 months?: Yes Did you have a dental problem in the last 6 months where you did not have access to dental care?: No Was dental information given to patient?: Patient has dentist HPI HPI Comments History of Present Illness Details 30 y/o F with asthma, gestational dm, ob esity, fhx colon ca in Mom, SCOTT, MDD, Iron def anemia, Cerebral venous thrombus of sinus, migraine headaches Surgery: None Fhx: Mom colon Ca (dx 47); Dad alive and well; 3 siblings alive and well. 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 weight gain: - The patient reports giving in ly and was initially losing weight , but then began gaining weight despite no changes in her eating habits. - Her weight increased from 204 lbs at o ne point to a current weight of 225 lbs, which she states is her heaviest ever. - She is no longer . - She struggles with emotional and stres s eating, describing intense cravings. - She is trying to implement a calorie d eficit, focusing on higher protein and lower carbohydrate intake. - Previous labs from May 24 show ed some anemia and slightly high cholesterol, but a normal thyroid. Mental Health History: - The patient reports seeing a prescribe r for mental health concerns and is trying to figure out other issues. - She has an upcoming appointment with h er prescriber next week to explore other medication options, as she has recently stopped . - The patient was without her sertraline for almost two months due to a lapse in insurance coverage. Migraines: - The patient reports her migraines have been returning and are not managed with regular medications. - She was previously prescribed Nurtec, which she confirms was effective. Hearing Loss: L ear hard time hearing, worse since onset; this started a while ago Cerebral venous thrombus of sinus noted during last . + headaches. Advised no f/u needed CT scan was ordered at last visit but she lost her insurance; this is still needed and will be re-processed now that she has insurance Past Medical History - state: Gave in February. - Anemia: Noted on labs from April 27. - Hypercholesterolemia: Noted on labs fr om May 24. - Migraines: Previously treated with Kacey patricia. - Mental health: Under the care of a pre scriber for unspecified mental health conditions and has taken sertraline. - Seizure history: Denies. Review of Systems - Constitutional: Reports recent weight gain. - Psychiatric: Reports emotional and str ess eating with intense cravings. - Neurological: Reports return of migrai jose not managed with regular medications. Denies a history of seizures. - Endocrine: Denies pain or tenderness i n the neck. Physical Exam General: Well developed, well nourished, in no acute distress. Appears stated age. Head: Normocephalic, atraumatic. Eyes: Pupils are equal, round and reactive to light and accommodation. Conjunctivae are clear. Vision grossly normal. Neck: thyroid nontender Lungs: Clear to auscultation bilaterally. No rales, rhonchi or wheeze noted. Good air flow in all gill. Heart: Regular rate and rhythm. No murmurs, click, rubs or gallops are noted. Abdomen: Bowel sounds present in all quadrants. The abdomen is soft, nontender, with no masses or organomegaly noted. No hernias are noted. Extremities: No clubbing, cyanosis nor edema is noted. Psych: Mood and affect appropriate. Results See below Medical Decision Making The patient is a 30-year-old female, since February, presenting with concerns of weight gain. Despite initial weight loss, she has had a recent significant weight increase from 204 lbs to 225 lbs, which she identifies as her highest weight ever. She reports struggles with emotional and stress eating. Given that she is in the first year , a common period for thyroid dysfunction, repeating her TSH is prudent, even though it was normal in April. If the TSH is abnormal, the plan will be to treat the thyroid c ondition, which may involve medication or a referral to endocrinology, depending on lab results. If her thyroid function is normal, the plan is to address the emotional eating and aid weight loss with bupropion (Wellbutrin). This medication is chosen for its efficacy in managing emotional eating by blocking reward centers in the brain. The patient has no contraindications, such as a seizure history or plans for future . She will be started on the lowest dose of 150 mg daily. Her migraines have returned, and she has had previous success with Nurtec. A prescription for Nurtec will be sent, and she was educated on refilling it monthly to build a stock due to insurance limitations on quantity. Finally, a prior authorization for a CT scan that was delayed due to a lapse in insurance will be re-submitted. Follow-up is recommended in 8 weeks to assess her response to treatment. Plan 1. Weight Gain - A TSH level will be checked today to r ule out thyroid dysfunction as a cause for weight gain. - If the thyroid is abnormal, treatment will be initiated for the thyroid condition, and the prescription for Wellbutrin will be held. - Treatment for an abnormal thyroid may involve medication or a referral to endocrinology, depending on the lab results. - If thyroid labs are normal, a prescrip tion for Wellbutrin 150 mg daily will be sent to the pharmacy to aid with weight loss and address emotional eating. - The patient was counseled on potential side effects of Wellbutrin, including feeling edgy or anxious initially, and constipation. - A follow-up visit is recommended in 8 weeks to assess response to treatment. 2. Migraines - A prescription for Nurtec will be sent to the pharmacy for management of her returning migraines. - The patient was advised to refill the medication monthly, even if not fully used, to build a stock due to insurance quantity limits. 3. Mental Health Management - The patient was advised to inform her mental health prescriber about the plan to start Wellbutrin, as it is also considered a mood medication. 4. Administrative - A prior authorization for a CT scan wi ll be resubmitted. - A work note will be provided for the p atient. Patient Instructions - You will have your blood drawn today t o check your thyroid level (TSH). The results will be available today, and you will receive a message through the patient portal. - If your thyroid lab is normal, a presc ription for a medication called Wellbutrin will be sent to your pharmacy. Take this medication once in the morning, with or without food. - Be aware that Wellbutrin may make you feel a little edgy or anxious for the first two weeks, but this should go away. It can also cause constipation, so be sure to increase your intake of fiber and fluids. - Let your mental health prescriber know that you may be starting Wellbutrin. - If your thyroid lab is abnormal, we wi ll not start the Wellbutrin. Instead, we will focus on treating your thyroid, and I will message you about the next steps. - A prescription for Nurtec for your lori negrete has been sent to your pharmacy. Refill this prescription every month, even if you don't use all the pills, so you can have extra on hand. - Our staff will work on getting the paulina or authorization for your CT scan approved. - Stop at the bowling or skating front desk clerk to get your wor k note and schedule your next appointment with me in about 8 weeks. Consent Patient was informed and verbally consented to the use of an ambient scribe for clinic note documentation during this visit. Total time spent caring for the patient today was 30 minutes. This includes time spent before the visit reviewing the chart, time spent during the visit, and time spent after the visit on documentation, reviewing laboratory results, diagnostic imaging, medications, performing a medically necessary evaluation, counseling on diagnoses, care coordination, ordering appropriate tests, ordering appropriate medications, review of tests performed by other providers, reporting test results with the patient, communication with other healthcare providers. [facility] Medical History (Updated 08/08/25 @ 08:53 by DYLAN Gunter) Anxiety and depression Asthma HSV (herpes simplex virus) anogenital infection Surgical History (Updated 05/24/25 @ 08:54 by Blade Akers MA) No pertinent past surgical history Family History (Updated 05/24/25 @ 08:55 by Blade Akers MA) Mother Asthma Diabetes Colon cancer Mental health disorder Social History (Updated 05/24/25 @ 08:51 by Blade Akers MA) Household Members: Spouse, Children and Other Household Members Other:: mother in law Both parents involved: No Caregiver staying overnight: No Housing: House 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 1. Little interest or pleasure in doing things: not at all 2. Feeling down, depressed, or hopeless: not at all 3. Trouble falling or staying asleep, or sleeping too much: not at all 4. Feeling tired or having little energy: not at all 5. Poor appetite or overeating: nearly every day 6. Feeling bad about yourself - or that you are a failure or have let yourself or your family down: not at all 7. Trouble concentrating on things, such as reading the newspaper or watching television: more than half the days 8. Moving or speaking so slowly that other people could have noticed. Or the opposite - being so fidgety or restless that you have been moving around a lot more than usual: not at all 9. Thoughts that you would be better off or of hurting yourself in some way: not at all Total score: 5 Depression Screening Interpretation: Positive Depression Screening Done: Yes 07467 - PHQ-9 Billing: Yes Source: Developed by Drs. Todd Quintanilla, Herlinda oWod, Dav Prajapati and colleagues, with an educational stacy from [employer]. Thrive Questionnaire Date Thrive assessed: 08/08/25 I am a: Patient What is your living situation today?: I have a steady place to live Within the past 12 months, did the food you bought not last and you didn't have the money to get more?: Never true Within the past 12 months, did you worry whether your food would run out before you got money to buy more?: Never true Do you have trouble paying for medicines?: No Do you have trouble getting transportation to medical appointments?: No Do you have trouble paying your heating and electricity bill?: No Do you have trouble taking care of your child, family member or friend?: No Do you have trouble with day-to-day activities such as bathing, preparing meals, shopping, managing finances, etc.?: No Are you currently unemployed and looking for a job?: No Are you interested in more education?: No Please select the resources that you would like help with: None Currently or been in a relationship where the following occur: No concerns reported THRIVE Score: 0 SCOTT-7 AMB Questionnaire SCOTT-7 Date SCOTT - 7 assessed: 08/08/25 Feeling nervous, anxious, or on edge: 0 = Not at all Not being able to stop or control worryin = Not at all Worrying too much about different things: 0 = Not at all Trouble relaxin = Not at all Being so restless that it is hard to sit still: 0 = Not at all Becoming easily annoyed or irritable: 0 = Not at all Feeling afraid as if something awful might happen: 0 = Not at all Total SCOTT-7 score (0-4 normal; 5-9 mild; 10-14 moderate; 15-21 severe): 0 Source: Developed by Drs. Todd Quintanilla, Herlinda Wood, Dav Prajapati and colleagues, with an educational stacy from [employer]. SCOTT-7 Assessment Billing SCOTT-7 Assessment Tool: SCOTT-7 Assessment 35880 Physical exam (Primary Care) Vital Signs: Last Vital Signs Temp 97.7 F 08/08/25 08:16 Pulse 78 08/08/25 08:16 Resp 13 08/08/25 08:16 BP 138/76 08/08/25 08:16 Pulse Ox 99 08/08/25 08:16 Oxygen Delivery Method Room Air 08/08/25 08:16 BMI result Body Mass Index 39.9 BMI Assessment/Plan discussion: High BMI High, discussed plan: lifestyle Tobacco/Smoking Status: Tobacco use Status Tobacco use date assessed 08/08/25 08/08/25 08:18 Patient Tobacco Use Status Never used Tobacco 08/08/25 08:18 e-Cigarette/Vaping Use Never Used 08/08/25 08:18 PHQ-9: PHQ-9 Score PHQ-9: Total score 5 08/08/25 08:18 Depression Screening Interpretation: Positive Thrive Assessment: Date of Thrive Assessment Date Thrive assessed 08/08/25 08/08/25 08:18 Currently or been in a relationship where the following occur: No concerns reported Results Reviewed Results Reviewed: Laboratory 05/24/25 Result Units Range Interpretation Provider Comments White Blood Count 9.3 X10*3/uL (4.8-10.8) Red Blood Count 5.23 X10*6/uL (4.20-5.50) Hemoglobin 12.1 g/dl (12.0-16.0) Hematocrit 38.9 % (37.0-47.0) Mean Corpuscular Volume 74.4 fL (80.0-98.0) Low Mean Corpuscular Hemoglobin 23.1 pg (27.0-33.0) Low Mean Corpuscular Hemoglobin Concent 31.1 g/dl (31.0-35.0) Red Cell Distribution Width 14.0 % (11.0-16.0) Platelet Count 353 X10*3/uL (160-400) Mean Platelet Volume 10.4 fL (9.4-12.3) Nucleated RBC Absolute Count (auto) 0.000 X10*3/uL (0.0-0.012) Nucleated Red Blood Cells % (auto) 0.0 /100WBC (0.0-0.2) Sodium Level 142 mmol/L (135-145) Potassium Level 4.4 mmol/L (3.3-5.1) Chloride Level 109 mmol/L (96-108) High Carbon Dioxide Level 25 mmol/L (22-29) Anion Gap 12 (12-20) Blood Urea Nitrogen 9 mg/dL (9-16) Creatinine 0.73 mg/dL (0.5-1.4) Estimated Creatinine Clearance Calc Not Reportable Estimat Glomerular Filtration Rate > 60 Random Glucose 73 mg/dL (60-115) Estimated Average Glucose 105 mg/dL Hemoglobin A1c Percent 5.3 % (<6.0) Calcium Level 9.3 mg/dL (8.4-10.2) Iron Level 213 mcg/dL (30-160) High Total Iron Binding Capacity 329 mcg/dL (228-428) Percent Iron Saturation 65 % (15-50) High Unsaturated Iron Binding 116 ug/dL Ferritin 38 ng/mL (10-122) Total Bilirubin 0.2 mg/dL (0.0-1.0) Aspartate Amino Transf (AST/SGOT) 14 U/L (5-31) Alanine Aminotransferase (ALT/SGPT) 22 U/L (0-31) Alkaline Phosphatase 61 U/L (39-117) Total Protein 7.0 g/dL (6.5-8.0) Albumin 4.5 g/dL (3.5-5.0) Triglycerides Level 127 mg/dL (<150) Cholesterol Level 194 mg/dL (<200) LDL Cholesterol, Calculated 118 mg/dL (<100) High HDL Cholesterol 51 mg/dL (>40) Vitamin B12 Level 687 pg/mL (200-900) 25-Hydroxy Vitamin D Total 37.9 ng/mL (>30) Folate > 20.0 ng/mL (> or = 4.0) Thyroid Stimulating Hormone (TSH) 1.05 uIU/mL (0.32-4.0) Urine Creatinine 31.41 mg/dL Urine Microalbumin < 5.0 mg/L Urine Microalbumin/Creatinine Ratio TNP Coding Level of Care Code Est Pt Level 4 (58058) Add On Problem Visit Only Diagnoses Obesity (BMI 30-39.9) E66.9 Migraine without status migrainosus, not intractable, unspecified migraine type G43.909 Migraine type: unspecified Status migrainosus presence: without status migrainosus Intractability: not intractable SCOTT (generalized anxiety disorder) F41.1 Mild episode of recurrent major depressive disorder F33.0 Major depression episode severity: mild Sudden-onset sensorineural hearing loss of left ear H91.22 Iron deficiency anemia due to chronic blood loss D50.0 Iron deficiency anemia type: chronic blood loss Cerebral venous sinus thrombosis G08 Additional Codes SCOTT-7 Assessment Billing - SCOTT-7 Assessment Tool: SCOTT-7 Assessment 86226 ([id number]) PHQ-9 - 84419 - PHQ-9 Billing: Yes ([id number]) Assessment & Plan Assessment & Plan (1) Obesity (BMI 30-39.9): Code(s): E66.9 - Obesity, unspecified Category: Medical (2) Migraine headache: Code(s): G43.909 - Migraine, unspecified, not intractable, without status migrainosus Category: Medical Qualifiers: Migraine type: unspecified Status migrainosus presence: without status migrainosus Intractability: not intractable Qualified Code(s): G43.909 - Migraine, unspecified, not intractable, without status migrainosus (3) SCOTT (generalized anxiety disorder): Code(s): F41.1 - Generalized anxiety disorder Category: Medical (4) MDD (major depressive disorder), recurrent episode: Code(s): F33.9 - Major depressive disorder, recurrent, unspecified Category: Medical Qualifiers: Major depression episode severity: mild Qualified Code(s): F33.0 - Major depressive disorder, recurrent, mild (5) Sudden-onset sensorineural hearing loss of left ear: Code(s): H91.22 - Sudden idiopathic hearing loss, left ear Category: Medical (6) Iron deficiency anemia: Code(s): D50.9 - Iron deficiency anemia, unspecified Category: Medical Qualifiers: Iron deficiency anemia type: chronic blood loss Qualified Code(s): D50.0 - Iron deficiency anemia secondary to blood loss (chronic) (7) Cerebral venous sinus thrombosis: Code(s): G08 - Intracranial and intraspinal phlebitis and thrombophlebitis Category: Medical Plan . Orders: Orders Thyroid Peroxidase Antibodies Today E66.9 - Obesity, unspecified TSH reflex Free T4 Today E66.9 - Obesity, unspecified Medications: New rimegepant (Nurtec ODT) 75 mg PO Q OTHER DAY PRN 7 tabs 2RF migraine headache
[2025-08-08 08:16] VITALS: BP 138/76; PULSE 78; RESP 13; TEMP 36.5; O2SAT 99; BMI 39.9
--- OUTSIDE RECORDS SUMMARY | 2025-08-08 08:44 | XMS_ITS | Patient Health Record ---
Author Organization [facility] [address] [address] Address [address] [place] [address] Care Team Providers Care Bookstore Manager Name Role Phone SALTY KNUTSON Unavailable [phone] Allergies No Known Allergies Reason For Referral [...] weekly Subcutaneous Weekly; Duration: 30 days Active Immunizations Vaccine Route Administration Date Status Comme nts influenza IM Intramuscular 10/08/2022 Administered Social History Tobacco Use: Social History Observation Description Date Details (start date - stop date) Never Smoker NA - NA Social History Drugs/Alcohol: Social Info Question Answer Notes Drugs Have you used drugs other than those for medical reasons in the past 12 months? No Tobacco Use: Social Info Question Answer Notes Tobacco Use/Smoking Are you a nonsmoker Additional Details Category Social Info Options Details Drugs/Alcohol: Do you smoke marijuana? De nies Do you drink alcohol? Socially Problems Problem Type SNOMED Code ICD Code Onset Dates Problem Status W/U Status Risk Notes Problem Vitamin D deficiency (46644233) Vitamin D deficiency, unspecified (E55.9) Active confirmed Problem Migraine with aura (6558640) Migraine with aura, not intractable, with status migrainosus (G43.101) Active confirmed Problem Adult health examination (508466065) Encounter for general adult medical examination without abnormal findings (Z00.00) Active confirmed Problem Diabetes mellitus screening (841715923) Encounter for screening for diabetes mellitus (Z13.1) Active confirmed Problem Endocrine/metaboli c screening (504259358) Encounter for screening for other suspected endocrine disorder (Z13.29) Active confirmed Problem Prediabetes (762686916) Prediabetes (R73.03) Active confirmed Problem Hyperlipidaemia (88601986) Hyperlipidemia, unspecified hyperlipidemia type (E78.5) Active confirmed Problem Anxiety (99349527) Anxiety (F41.9) Active confi rmed Problem Hypothyroidism (37395729) Hypothyroidism, unspecified type (E03.9) Active confirmed Problem Obesity (010063654) Obesity (BMI 30-39.9) (E66.9) Active confirmed Problem Obese class II (428818223873472) BMI 37.0-37.9, adult (Z68.37) Active confirmed Problem Mild major depression, single episode (27703898) Current mild episode of major depressive disorder without prior episode (F32.0) Active confirmed Problem Obese class II (275673117458071) BMI 36.0-36.9,adult (Z68.36) Active confirmed Problem Visual Disturbance (98951560) Blurred vision, bilateral (H53.8) Active confirmed Problem ADD - Attention deficit disorder without hyperactivity (98627868) ADD (attention deficit disorder) without hyperactivity (F98.8) Active confirmed Problem Tension headache (814540938) Tension headache (G44.209) Active confirmed Plan Of [...] Coverage Start Date Coverage End Date [place] [address] [place] [id number] [id number] Madhuri Martinez Self - patient is the insured 2 Medical (General) History Medical History History ICD Code anxiety depression asthma headache anemia weight gain Hospitalization History Reason Date(Month/Year) child 2021
--- OUTSIDE RECORDS SUMMARY | 2025-08-08 08:44 | XMS_ITS | Patient Health Record ---
Author Organization [employer] [facility] Address [address] [place] [address] Care Team Providers Care Clinical Rehabilitation Specialist Name Role Phone LONI Cunningham, [facility] Primary Care Prov ider Unavailable CADEN ADAME Unavailable [phone] Allergies No Known Allergies Results Component Value [...] Status W/U Status Risk Notes Problem Dysmenorrhea (652820000) Dysmenorrhea, unspecified (N94.6) Active confirmed Problem Herpetic vulvovaginitis (13837963) Herpesviral vulvovaginitis (A60.04) Active confirmed Problem Gastro-esophageal reflux disease with esophagitis (016613855) Gastro-esophageal reflux disease with esophagitis (K21.0) Active confirmed Problem Amenorrhea (39586386) Amenorrhea, unspecified (N91.2) Active confirmed Problem Irregular Menstruation (57544300) Other specified irregular menstruation (N92.5) Active confirmed Problem Obese class II (669239640855571) Body mass index [BMI] 35.0-35.9, adult (Z68.35) Active confirmed Vital Signs Temperature 99.8 degrees Fahrenheit 08/10/2024 Blood pressure diastolic 72 mm Hg 08/10/2024 Height 63 in 08/10/2024 Blood pressure systolic 124 mm Hg 08/10/2024 Weight 230 lbs 08/10/2024 BMI 40.74 kg/m2 08/10/2024 Encounters Encounter Location Date Provider Diagnosis [address] [place] [address] 08/10/2024 CADEN ADAME Amenorrhea, unspecified N91.2 and [...] Insured Coverage Start Date Coverage End Date [facility] ([employer] [employer]) [address] [place] [address] [id number] STEFANI ANAND Self - patient is the insured Medical (General) History Medical History History ICD Code Gastro-esophageal reflux disease with es ophagitis K21.0 Irregular menstruation, unspecified N92. 6 COVID-19 U07.1 Surgical History Surgery Date(Month/Year) Hospitalization History Reason Date(Month/Year) childbirth
--- OUTSIDE RECORDS SUMMARY | 2025-08-08 08:44 | XMS_ITS | Clinical Summary ---
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 Name Role Phone Unavailable Primary Care Provider Unavailabl e Social History Tobacco Use Types Packs/Day Years Used Date Smoking Tobacco: Never Assessed Comments Unknown Sex and Gender Information Value Date Recorded Sex Assigned at Not on file Legal Sex Female 11:51 PM EST Gender Identity Not on file Sexual Orientation Not on file Plan of Treatment Health Maintenance Due Date Last Done Comments DTaP,Tdap,and Td Vaccines (1 - Tdap) 2014 Hepatitis B Vaccines (1 of 3 - 19+ 3-dose series) 2014 Cervical Cancer Screening: P ap Smear 2016 HPV Vaccines (1 - 3-dose SCD M series) 2022 HIV Screening 10/31/2023 Hepatitis C Screening 10/31/2023 Social Influencers of Health Screening 10/31/2023 Depression Screening 08/25/2024 COVID-19 Vaccine (1 - 2024-2 6 season) 2025 Influenza Vaccine (#1) 2025 RSV Immunization Adult Patie nts (1 - 1-dose 75+ series) 2070 HIB Vaccines Aged Out No longer eligi ble based on patient's age to complete this topic Hepatitis A Vaccines Aged Out No long er eligible based on patient's age to complete this topic IPV Vaccines Aged Out No longer eligi ble based on patient's age to complete this topic MMR Vaccines Aged Out No longer eligi ble based on patient's age to complete this topic Meningococcal ACWY Vaccine Aged Out N o longer eligible based on patient's age to complete this topic Meningococcal B Vaccine Aged Out No l onger eligible based on patient's age to complete this topic Pneumococcal Vaccine: Pediat rics (0 to 5 Years) and At-Risk Patients (6 to 49 Years) Aged Out No longer eligible b ased on patient's age to complete this topic RSV Immunization Patients Un valentino 20 months Aged Out No longer eligible b ased on patient's age to complete this topic Varicella Vaccines Aged Out No longer eligible based on patient's age to complete this topic
== END 2025-08-08 08:47 | disposition home or self-care (01) ==
LOC: HO.HMCFM 08:08
PROVIDERS: PCP Nurse Practitioner Family; Visit Provider Nurse Practitioner Family
DX: G43.909 Migraine, unspecified, not intractable, without status migrainosus (principal); F41.1 Generalized anxiety disorder; E66.9 Obesity, unspecified; Z68.39 Body mass index [BMI] 39.0-39.9, adult; F33.0 Major depressive disorder, recurrent, mild; H91.22 Sudden idiopathic hearing loss, left ear; D50.0 Iron deficiency anemia secondary to blood loss (chronic); G08 Intracranial and intraspinal phlebitis and thrombophlebitis